=== PATIENT | male | born 1940 | race Two or more races ===

== ENCOUNTER 2018-02-22 17:39 | Inpatient (IN) | payer MEDICARE, MEDICAID ==
[~2018-02-22] VITALS: Ht 172.7 cm; Wt 98.1 kg
--- NOTE | 2018-02-22 00:15 | NUR ---
NURSE NOTES: Called Marcio Reyes for admission order, left message and received call back from Dr. Buckley with admission order, order noted and carried out.
[2018-02-22 17:39] VITALS: BP 128/82
--- NOTE | 2018-02-22 17:39 | NUR ---
ED Nurse Note: PT BROUGHT IN BY AMBULANCE FROM [facility]. PT GENERALIZED BODY ACHE, 10/10 X YESTERDAY. PT ALSO STATES HE MISSED DIALYSIS TODAY. AV FISTULA IN RIGHT UPPER ARM.
--- NOTE | 2018-02-22 18:42 | NUR ---
ED Nurse Note: 2RNs attempted for IV insertion, unsuccesful. Notified NÉSTOR Guillermo and Dr. Spears. Contacted laborer steel handling to come draw blood. Per Dr. Spears, we will wait for the lab result after laborer steel handling draw the blood and discuss further interventions.
--- NOTE | 2018-02-22 18:50 | NUR ---
ED Nurse Note: LAB AT BEDSIDE.
--- NOTE | 2018-02-22 18:54 | Diagnostic Imaging Report ---
EXAM: XR Chest, 1 View CLINICAL HISTORY: SWELL TECHNIQUE: Frontal view of the chest. COMPARISON: No relevant prior studies available. FINDINGS: The heart is enlarged. There is a single lead pacer device in a left subclavian approach. There are basilar opacities, left greater than right. Suspected moderate left and small right pleural effusions with associated compressive atelectasis. Cannot exclude consolidation. There is vascular congestion. Stent noted in the right upper mediastinum. IMPRESSION: Cardiomegaly and vascular congestion. Left larger than right pleural effusions with associated atelectasis and possible consolidation.
--- NOTE | 2018-02-22 19:04 | NUR ---
ED Nurse Note: REPORT GIVEN TO HUAN GLORIA.
--- NOTE | 2018-02-22 19:10 | NUR ---
ED Nurse Note: Received Pt and report from day shift. Knowing Pt will admit to MedSurg later, and Lab work is collecting on bedside but failed.
[2018-02-22] MEDS ORDERED: Lidocaine 1% Plain 30 ml INJ ONE (20:30)
[2018-02-22 20:38] LABS: BASOPHILS % (AUTO) 1.7 % (0.0-2.0); EOSINOPHILS % (AUTO) 4.5 % (0.0-3.0); HEMATOCRIT 28.3 % (42.0-52.0); HEMOGLOBIN 9.4 G/DL (14.2-18.0); LYMPHOCYTES % (AUTO) 14.9 % (20.0-45.0); MEAN CORPUSCULAR VOLUME 105 FL (80-99); NEUTROPHILS % (AUTO) 64.9 % (45.0-75.0); PLATELET COUNT 177 K/UL (150-450); RED CELL DISTRIBUTION WIDTH 12.8 % (11.6-14.8); WHITE BLOOD COUNT 7.3 K/UL (4.8-10.8)
[2018-02-22 20:44] LABS: ANION GAP 11 mmol/L (5-15); BLOOD UREA NITROGEN 44 mg/dL (7-18); CARBON DIOXIDE 26 MMOL/L (21-32); CHLORIDE 97 MMOL/L (98-107); CREATININE 8.6 MG/DL (0.55-1.30); POTASSIUM 4.9 MMOL/L (3.5-5.1); SODIUM 133 MMOL/L (136-145)
[2018-02-22 20:58] LABS: ALANINE AMINOTRANSFERASE 18 U/L (12-78); ALBUMIN 3.1 G/DL (3.4-5.0); ALBUMIN/GLOBULIN RATIO 0.7 (1.0-2.7); ALKALINE PHOSPHATASE 89 U/L (46-116); ASPARTATE AMINO TRANSFERASE 25 U/L (15-37); BILIRUBIN,TOTAL 0.7 MG/DL (0.2-1.0); CKMB 0.6 NG/ML (0.0-3.6); CREATINE KINASE 49 U/L (26-308)
--- NOTE | 2018-02-22 21:39 | Emergency Room Report ---
History of Present Illness General Chief Complaint: Edema Source: Medical Record Present Illness HPI 77-year-old male presents ED for evaluation. Coming from intermediate facility for generalized pain and swelling. Per nursing staff patient missed his dialysis today. Has been complaining of generalized pain. Dull, 8 out of 10, nonradiating. Denies chest pain or shortness of breath. Denies fevers or chills. Denies cough. No other aggravating relieving factors. Denies any other associated symptoms Allergies: Coded Allergies: ASPIRIN (Verified Allergy, Unknown, 02/22/18) Patient History Past Medical History: none Past Surgical History: none Pertinent Family History: none Social History: Denies: smoking, alcohol use, drug use Immunizations: UTD Reviewed Nursing Documentation: PMH: Agreed; PSxH: Agreed Review of Systems All Other Systems: negative except mentioned in HPI Physical Exam Vital Signs Date Time Temp Pulse Resp B/P (MAP) Pulse Ox O2 Delivery O2 Flow Rate FiO2 02/22/18 17:32 97.5 74 18 132/79 94 Room Air Sp02 EP Interpretation: reviewed, normal General Appearance: alert, GCS 15, non-toxic, obese Head: normocephalic, atraumatic Eyes: bilateral eye normal inspection, bilateral eye PERRL ENT: hearing grossly normal, normal pharynx, no angioedema, normal voice Neck: full range of motion, supple/symm/no masses Respiratory: chest non-tender, lungs clear, normal breath sounds, speaking full sentences Cardiovascular #1: regular rate, rhythm, no edema Cardiovascular #2: 2+ carotid (R), 2+ carotid (L), 2+ radial (R), 2+ radial (L) , 2+ dorsalis pedis (R), 2+ dorsalis pedis (L) Gastrointestinal: normal bowel sounds, non tender, soft, non-distended, no guarding, no rebound Rectal: deferred Genitourinary: normal inspection, no CVA tenderness Musculoskeletal: back normal, gait/station normal, normal range of motion, non- tender Neurologic: alert, oriented x3, responsive, motor strength/tone normal, sensory intact, speech normal Psychiatric: judgement/insight normal, memory normal, mood/affect normal, no suicidal/homicidal ideation Reflexes: 3+ bicep (R), 3+ bicep (L), 3+ tricep (R), 3+ tricep (L), 3+ knee (R) , 3+ knee (L) Skin: normal color, no rash, warm/dry, well hydrated Lymphatic: no adenopathy Procedures Central Line Central Line : Consent: Verbal Central Line Lumen: triple Maximal Sterile Barrier Tech: no cap, no mask, no sterile gown, no sterile gloves, no large sterile sheet, no hand hygiene, no chlorhexidine prep Central Line Postion: femoral (R) Anesthesia: Lidocaine Complications: none Central Line Post Position: sutured, good blood return Attempts: One Patient Tolerated: Well Complications: None Medical Decision Making Diagnostic Impression: Primary Impression: ESRD on dialysis Additional Impression: Elevated troponin ER Course Hospital Course 77 yo M presents with generalized swelling. mised dialysis today Differential diagnoses include: NH/unstable angina, fluid overload, CHF exacerabation, hyperkalemia, uremia Clinical course Patient placed on stretcher. on cardiac technician. After initial history and physical I ordered labs, EKG, chest x-ray labs reviewed- BUN/Cr elevated. K ok. trop 0.068, no leukocytosis, hemoglobin /hematocrit stable EKG - NSR, no acute ischemic changes interpreted by me Chest x-ray- left worse than right pleural effusions with some atelectasis and possible consolidation Patient is a very difficult IV access. Multiple attempts made. Right femoral central line placed. Lactate and cultures ordered abx given. Patient has no chest pain. No shortness of breath. Troponin elevation likely troponin leak. Vital stable. Case discussed with Dr. Buckley and he agreed to accept the patient to his service for further care and support I. I feel this is a highly complex case requiring extensive working including EKG/Rhythm strip, Xray/CT/US, Blood/urine lab work, repeat exams while in ED, and administration of strong opiates/narcotics for pain control, admission to hospital or close patient follow up. Diagnosis - ERSD on dialysis, elevated troponin admitted to floor in serious condition Labs Test 02/22/18 20:15 02/22/18 20:16 White Blood Count 7.3 K/UL (4.8-10.8) Red Blood Count 2.70 M/UL (4.70-6.10) Hemoglobin 9.4 G/DL (14.2-18.0) Hematocrit 28.3 % (42.0-52.0) Mean Corpuscular Volume 105 FL (80-99) Mean Corpuscular Hemoglobin 34.8 PG (27.0-31.0) Mean Corpuscular Hemoglobin Concent 33.1 G/DL (32.0-36.0) Red Cell Distribution Width 12.8 % (11.6-14.8) Platelet Count 177 K/UL (150-450) Mean Platelet Volume 6.4 FL (6.5-10.1) Neutrophils (%) (Auto) 64.9 % (45.0-75.0) Lymphocytes (%) (Auto) 14.9 % (20.0-45.0) Monocytes (%) (Auto) 14.0 % (1.0-10.0) Eosinophils (%) (Auto) 4.5 % (0.0-3.0) Basophils (%) (Auto) 1.7 % (0.0-2.0) Sodium Level 133 MMOL/L (136-145) Potassium Level 4.9 MMOL/L (3.5-5.1) Chloride Level 97 MMOL/L (98-107) Carbon Dioxide Level 26 MMOL/L (21-32) Anion Gap 11 mmol/L (5-15) Blood Urea Nitrogen 44 mg/dL (7-18) Creatinine 8.6 MG/DL (0.55-1.30) Estimat Glomerular Filtration Rate mL/min (>60) Glucose Level 99 MG/DL (74-106) Calcium Level 9.0 MG/DL (8.5-10.1) Total Bilirubin 0.7 MG/DL (0.2-1.0) Aspartate Amino Transf (AST/SGOT) 25 U/L (15-37) Alanine Aminotransferase (ALT/SGPT) 18 U/L (12-78) Alkaline Phosphatase 89 U/L (46-116) Total Creatine Kinase 49 U/L (26-308) Creatine Kinase MB 0.6 NG/ML (0.0-3.6) Creatine Kinase MB Relative Index 1.2 Troponin I 0.068 ng/mL (0.000-0.056) Pro-B-Type Natriuretic Peptide 05340 pg/mL (0-125) Total Protein 7.3 G/DL (6.4-8.2) Albumin 3.1 G/DL (3.4-5.0) Globulin 4.2 g/dL Albumin/Globulin Ratio 0.7 (1.0-2.7) Arterial Blood pH 7.444 (7.350-7.450) Arterial Blood Partial Pressure CO2 40.5 mmHg (35.0-45.0) Arterial Blood Partial Pressure O2 83.0 mmHg (75.0-100.0) Arterial Blood HCO3 27.1 mmol/L (22.0-26.0) Arterial Blood Oxygen Saturation 95.8 % (95-100) Arterial Blood Base Excess 2.8 (-2-2) Jet Test N/a EKG Diagnostic Results Rate: normal Rhythm: NSR ST Segments: no acute changes ASA given to the pt in ED: No Rhythm Strip Diag. Results EP Interpretation: yes Rhythm: NSR, no PVC's, no ectopy Chest X-Ray Diagnostic Results Chest X-Ray Diagnostic Results : Chest X-Ray Ordered: Yes # of Views/Limited/Complete: 1 View Indication: Other EP Interpretation: Yes Interpretation: no pneumothorax, no acute cardiopulmonary disease, other - L >> R pleural effusions with ? consolidation Impression: Other - CHF/PNA Electronically Signed by: Electronically signed by Ben Mckeon MD Last Vital Signs Date Time Temp Pulse Resp B/P (MAP) Pulse Ox O2 Delivery O2 Flow Rate FiO2 02/22/18 17:39 98.3 72 20 128/82 100 Room Air Status: improved Disposition: ADMITTED INPATIENT Condition: Serious Referrals: Kelvin Buckley MD (PCP) Ben Mckeon MD Feb 22, 2018 21:39
[2018-02-22 23:00] VITALS: BP 136/89
--- NOTE | 2018-02-22 23:10 | NUR ---
ED Nurse Note: Admit Pt to 4E room 419-2. Pt is AO x 4times, VSS, on room air no distress. Belongings and skin check with RN. Report given to HUAN Negrete.
--- NOTE | 2018-02-22 23:15 | NUR ---
NURSE NOTES: Report received from ER HUAN Edwards. Patient transferred from ER via [place]. Patient awake, alert, No acute distress noted, Bed in lowest position and locked, Alarm is on, Skin assessment done, skin intact, Central line on Rt femoral is intact, AV shunt on Rt upper arm positive with bruit and thrill, Belonging are checked, instructed how to use call light, Call light and need within reach, Will continue to monitor.
[2018-02-23] VITALS: BP 141/74
[2018-02-23] MEDS ORDERED: ATORVASTATIN CA40 MG ORAL (01:56)
[2018-02-23] MEDS ORDERED: METOPROLOL TART25 MG ORAL (01:56)
[2018-02-23] MEDS ORDERED: FEOSOL1 TAB ORAL (01:56)
[2018-02-23] MEDS ORDERED: RENA-VITE TABL0.8 M1 PO (01:56)
[2018-02-23] MEDS ORDERED: CALCIUM ACETAT667 M1 PO (01:56)
[2018-02-23] MEDS ORDERED: RENVELA800 MG ORAL (01:59)
[2018-02-23] MEDS: HYDROcodone/Acetamin 5/325 tab ORAL PRN ×2 (02:51→09:54)
[2018-02-23 04:00] VITALS: BP 120/62
[2018-02-23] MEDS: Insulin Human Regular 100units/ml 3ml SUBQ SCH (05:37)
[2018-02-23 07:08] LABS: BASOPHILS % (AUTO) 0.6 % (0.0-2.0); EOSINOPHILS % (AUTO) 2.5 % (0.0-3.0); HEMATOCRIT 26.6 % (42.0-52.0); HEMOGLOBIN 8.8 G/DL (14.2-18.0); LYMPHOCYTES % (AUTO) 12.4 % (20.0-45.0); MEAN CORPUSCULAR VOLUME 104 FL (80-99); MONOCYTES % (AUTO) 12.6 % (1.0-10.0); NEUTROPHILS % (AUTO) 71.9 % (45.0-75.0); PLATELET COUNT 180 K/UL (150-450); RED BLOOD COUNT 2.56 M/UL (4.70-6.10); RED CELL DISTRIBUTION WIDTH 12.7 % (11.6-14.8)
[2018-02-23 07:20] LABS: ALANINE AMINOTRANSFERASE 17 U/L (12-78); ALBUMIN 2.9 G/DL (3.4-5.0); ALBUMIN/GLOBULIN RATIO 0.7 (1.0-2.7); ALKALINE PHOSPHATASE 84 U/L (46-116); ANION GAP 10 mmol/L (5-15); ASPARTATE AMINO TRANSFERASE 21 U/L (15-37); BILIRUBIN,TOTAL 0.7 MG/DL (0.2-1.0); BLOOD UREA NITROGEN 45 mg/dL (7-18); CALCIUM 8.5 MG/DL (8.5-10.1); CARBON DIOXIDE 26 MMOL/L (21-32); CHLORIDE 97 MMOL/L (98-107); CREATININE 9.2 MG/DL (0.55-1.30); POTASSIUM 5.1 MMOL/L (3.5-5.1); SODIUM 133 MMOL/L (136-145)
--- NOTE | 2018-02-23 07:21 | NUR ---
HAND-OFF: Report given to HUAN Altamirano.
[2018-02-23 08:00] VITALS: BP 127/65
--- NOTE | 2018-02-23 08:00 | NUR ---
NURSE NOTES: received patient in bed, asleep, no sign of discomfort noted. Patient is bedbound, has TLC at right femoral site, and right AV fistula for hemodialysis, thrill and bruit present. Bed locked at the lowest position possible, on bed alarm, call light within easy reach, siderails up x2. Will continue to monitor patient and follow op with the plan of care.
[2018-02-23] MEDS: Metoprolol 25mg tab ORAL SCH ×3 (09:00→21:58)
[2018-02-23] MEDS ORDERED: Imdur 30mg tab ORAL SCH ×3 (09:00→22:00)
[2018-02-23 09:15] LABS: CHOLESTEROL 97 MG/DL (< 200); HDL CHOLESTEROL 25 MG/DL (40-60); TRIGLYCERIDES 93 MG/DL (30-150)
[2018-02-23 09:19] LABS: % IRON SATURATION 25 % (15-50); IRON 34 ug/dL (50-175); TOTAL IRON BINDING CAPACITY 134 ug/dL (250-450)
[2018-02-23 09:35] LABS: FERRITIN 932 NG/ML (8-388); GAMMA GLUTAMYL TRANSPEPTIDASE 107 U/L (5-85); PHOSPHORUS 5.2 MG/DL (2.5-4.9)
[2018-02-23] MEDS: Nephrovite tab (Rena-Vite) ORAL SCH (09:46)
[2018-02-23] MEDS: Calcium Acetate 667mg Tab ORAL SCH ×3 (09:46→18:23)
[2018-02-23] MEDS: Docusate 100mg cap ORAL SCH ×3 (09:47→18:23)
[2018-02-23] MEDS: Heparin 5000 units/ml inj SUBQ SCH ×3 (09:49→21:57)
[2018-02-23 12:00] VITALS: BP 126/71
--- NOTE | 2018-02-23 14:30 | Cardiology Report ---
APPROVED REPORT EXAM: Two-dimensional and M-mode echocardiogram with Doppler and color Doppler. INDICATION Congestive Heart Failure M-Mode DIMENSIONS IVSd1.4 (0.7-1.1cm)Left Atrium (MM)4.3 (1.6-4.0cm) LVDd5.5 (3.5-5.6cm)Aortic Root3.3 (2.0-3.7cm) PWd1.4 (0.7-1.1cm)Aortic Cusp Exc.2.0 (1.5-2.0cm) LVDs4.3 (2.5-4.0cm) PWs1.9 cm Technically difficult study due to poor acoustic windows. Study quality precludes accurate assessment of regional wall motion. Normal left ventricular chamber size. Global left ventricular hypokinesis. Left ventricular ejection fraction estimated to be 40 %. Mild left ventricular hypertrophy. Large pleural effusion. Moderate left atrial enlargement. Right cardiac chamber sizes are within normal limits. Mild focal aortic valve sclerosis with adequate cusp excursion. Mildly thickened mitral valve leaflets with normal excursion. Mild mitral annulus and aortic root calcification. Pulmonic valve not well visualized. Normal tricuspid valve structure. IVC is normal in size with physiological collapse. A color flow and spectral Doppler study was performed and revealed: No aortic insufficiency. Mild mitral regurgitation. Left ventricular diastolic function could not be determined due to arrhythmia. Mild tricuspid regurgitation. Tricuspid systolic velocities suggests peak right ventricular systolic pressure of 40 mmHg, consistent with mild pulmonary hypertension. Trace pulmonic regurgitation present.
--- NOTE | 2018-02-23 15:01 | Consultation ---
Consult Note Consult Note asked to eval for dialysis management 77-year-old male presents ED for evaluation. Coming from [facility] for generalized pain and swelling. Per nursing staff patient missed his dialysis today. Has been complaining of generalized pain. Dull, 8 out of 10, nonradiating. Denies chest pain or shortness of breath. Denies fevers or chills. Denies cough. No other aggravating relieving factors. Denies any other associated symptoms Allergies: ASPIRIN (Verified Allergy, Unknown, 02/22/18) examined data reviewed Assessment/Plan ESRD graft right arm Obese CP elevated Troponin Anemia of CKD EPO SQ HD today beta blockers Nitrate plavix gastric support renal diet per orders 2D echo Prasanna Arrington MD Feb 23, 2018 15:01
--- NOTE | 2018-02-23 15:18 | Cardiology Report ---
APPROVED REPORT EKG Measurement Heart [id number] Atrial rhythm with PVCs Baseline artifact precludes full analysis. Cannot rule out Inferior infarct, age undetermined Abnormal ECG
[2018-02-23 16:00] VITALS: BP 127/70
--- NOTE | 2018-02-23 17:31 | NUR ---
CASE MANAGEMENT: INITIAL REVIEW 77 YO M JOANN FROM [facility] CC: EDEMA PMHx: HD. ESRD. SI:FLUID OVERLOAD. ESRD. T 97.5 HR 74 RR 18 B/P 132/79 SATS 94% ON RA NA 133 CL 97 BUN 44 CR 8.6 TROPONIN 0.068BNP 10993 IS: NO MEDS IN ED PATIENT ADMITTED TO MED/SURG 02/22/2018 @ 4361 DCP: PATIENT TO BE DISCHARGED TO HOME ONCE MEDICALLY CLEARED. PLAN OF CARE: NEPHRO CONSULT Addendum: 02/23/18 at 1919 by Enid Morrissey CM INTERQUAL MET FOR ACUTE
--- NOTE | 2018-02-23 17:59 | Consultation ---
DATE OF CONSULTATION: 02/23/2018 INFECTIOUS DISEASE CONSULTATION CONSULTING PHYSICIAN: Soto Saunders M.D. PRIMARY ATTENDING PHYSICIAN: Kelvin Buckley M.D. REASON FOR CONSULTATION: Pleural effusion, questionable pneumonia. HISTORY OF PRESENT ILLNESS: This is a 77-year-old male, who is a [facility] resident admitted last night complaining of generalized body pain and swelling. Currently getting pain medication and feels better. Chest x-ray showed pleural effusions more on the left side and some atelectasis or consolidation. PAST MEDICAL HISTORY: Significant for end-stage renal disease, on hemodialysis. The patient needs hemodialysis, the last hemodialysis in the [facility]. Anemia and diabetes mellitus. ALLERGIES: Allergic to aspirin. MEDICATIONS: He did get atorvastatin, isosorbide, heparin, calcium acetate, metoprolol, Renvela, Colace, Nephro-Karina, insulin, Protonix, hydrocodone plus Tylenol, clonidine, Zofran. He got a dose of Levaquin. SOCIAL HISTORY: Originally from [place]. No history of alcohol, drug abuse, or smoking. Single. REVIEW OF SYSTEMS: Now feeling better. No fever. No chills. No coughing. No shortness of breath. No sore throat. No nausea. No vomiting. No diarrhea. PHYSICAL EXAMINATION: VITAL SIGNS: Temperature 98.4, pulse 70, blood pressure 124/65. GENERAL APPEARANCE: Seems to be overweight, obese, in no acute distress. HEAD AND NECK: [place] conjunctivae. HEART: S1 and S2, regular. LUNGS: Clear. ABDOMEN: Soft, nontender. EXTREMITIES: No significant edema. NEUROLOGIC: Awake, alert, and oriented x3. LABORATORY AND DIAGNOSTIC DATA: WBC 7, hemoglobin 8.8, hematocrit 26.6, platelet is 180,000. Sodium 133, potassium 5.5, chloride 97, bicarbonate 26, BUN 45, creatinine 9.2. Chest x-ray showed cardiomegaly, vascular congestion, left larger than right pleural effusion with associated atelectasis, possible consolidation. IMPRESSION: Pleural effusion with atelectasis. The patient does not seem to be septic, doubt he has pneumonia. He has end-stage renal disease, likely volume overload, diabetes mellitus, hypertension, and anemia. RECOMMENDATION: We will observe off antibiotic. If the patient develops symptoms, become febrile, or develops leukocytosis, we will start treatment for pneumonia. At the end of my exam, I thank Dr. Buckley for involving me in the care of this patient. Soto Saunders M.D. DR: Kodi JOB#: [id number] CC:
--- NOTE | 2018-02-23 19:30 | NUR ---
NURSE NOTES: Received patient in bed, patient is ongoing Dialysis at this time.
--- NOTE | 2018-02-23 19:47 | NUR ---
HAND-OFF: Report given to HUAN Vidales.
[2018-02-23 21:00] VITALS: BP 121/61
[2018-02-23] MEDS: Atorvastatin 80mg tab ORAL SCH (21:58)
[2018-02-23] MEDS: Dyna-Hex 2% Top Sol 2oz TOPIC SCH (22:07)
--- NOTE | 2018-02-23 22:30 | NUR ---
Spoked Dr. Buckley on the phone regarding patient's high troponin level. According , high troponin level is expected for dialysis patient and He said Physician consult with Vickey Montejo for patient's concern. noted and carried out.
--- NOTE | 2018-02-23 22:30 | NUR ---
NURSE NOTES: Spoked Dr. Jacinto on the phone regarding patient's high troponin level. He said Physician consult with Vickey Montejo for patient's concern. noted and carried out. Addendum: 02/23/18 at 8684 by Arleth North RN wrong entry
--- NOTE | 2018-02-23 22:50 | NUR ---
NURSE NOTES: Called Dr. Jiang regarding patient concern with high troponin level and ejection fraction level. left message and received call back with order to cancel all troponin order. He said that he will visit patient tomorrow. order noted and carried out.
[2018-02-24] VITALS: BP 110/69
[2018-02-24 04:00] VITALS: BP 112/75
[2018-02-24] MEDS: HYDROcodone/Acetamin 5/325 tab ORAL PRN (04:40)
[2018-02-24] MEDS: Insulin Human Regular 100units/ml 3ml SUBQ SCH (06:07)
[2018-02-24 06:29] LABS: BASOPHILS % (AUTO) 1.1 % (0.0-2.0); EOSINOPHILS % (AUTO) 0.6 % (0.0-3.0); HEMATOCRIT 27.2 % (42.0-52.0); LYMPHOCYTES % (AUTO) 13.6 % (20.0-45.0); MEAN CORPUSCULAR VOLUME 104 FL (80-99); MONOCYTES % (AUTO) 14.2 % (1.0-10.0); NEUTROPHILS % (AUTO) 70.5 % (45.0-75.0); PLATELET COUNT 168 K/UL (150-450); RED BLOOD COUNT 2.61 M/UL (4.70-6.10); RED CELL DISTRIBUTION WIDTH 12.7 % (11.6-14.8); WHITE BLOOD COUNT 7.3 K/UL (4.8-10.8)
[2018-02-24 06:53] LABS: ALANINE AMINOTRANSFERASE 16 U/L (12-78); ALBUMIN 2.9 G/DL (3.4-5.0); ALBUMIN/GLOBULIN RATIO 0.7 (1.0-2.7); ALKALINE PHOSPHATASE 89 U/L (46-116); ANION GAP 7 mmol/L (5-15); ASPARTATE AMINO TRANSFERASE 20 U/L (15-37); BILIRUBIN,TOTAL 0.8 MG/DL (0.2-1.0); BLOOD UREA NITROGEN 27 mg/dL (7-18); CALCIUM 8.7 MG/DL (8.5-10.1); CARBON DIOXIDE 31 MMOL/L (21-32); CHLORIDE 96 MMOL/L (98-107); CREATINE KINASE 40 U/L (26-308); CREATININE 6.2 MG/DL (0.55-1.30); POTASSIUM 4.2 MMOL/L (3.5-5.1); SODIUM 134 MMOL/L (136-145)
[2018-02-24 07:18] LABS: PHOSPHORUS 3.7 MG/DL (2.5-4.9)
[2018-02-24 08:00] VITALS: BP 113/70
--- NOTE | 2018-02-24 08:00 | NUR ---
NURSE NOTES: received patient in bed, awake, no complaint of discomfort noted. Patient is bedbound, has TLC at right femoral site, and right AV fistula for hemodialysis. Bed locked at the lowest position possible, on bed alarm, call light within easy reach, siderails up x2. Will continue to monitor patient and follow op with the plan of care.
[2018-02-24] MEDS: Docusate 100mg cap ORAL SCH ×3 (08:46→18:18)
[2018-02-24] MEDS: Nephrovite tab (Rena-Vite) ORAL SCH (08:47)
[2018-02-24] MEDS: Calcium Acetate 667mg Tab ORAL SCH (08:47)
[2018-02-24] MEDS: Metoprolol 25mg tab ORAL SCH ×3 (08:48→21:00)
[2018-02-24] MEDS: Heparin 5000 units/ml inj SUBQ SCH ×2 (08:55→20:39)
[2018-02-24] MEDS ORDERED: Imdur 30mg tab ORAL SCH (09:00)
--- NOTE | 2018-02-24 09:45 | History and Physical Report ---
DATE OF ADMISSION: 02/22/2018 "NOTE: POOR AUDIO QUALITY" HISTORY OF PRESENT ILLNESS: The patient has end-stage renal disease, on hemodialysis, skipped hemodialysis. Also, has possible pneumonia, borderline elevated troponin as well. The patient complains of shortness of breath. . Denies cough. Denies orthopnea. Past medical history of end-stage renal disease, on hemodialysis. There is a shunt on the right arm, neck surgery. Also, right lower extremity fracture surgery. PAST MEDICAL HISTORY: Significant for end-stage renal disease, on hemodialysis; hyperlipidemia; iron deficiency anemia; hypertension; and degenerative joint disease. SOCIAL HISTORY: History of smoking. Denies alcohol or illicit drugs. Comes from a [facility]. FAMILY HISTORY: Noncontributory. REVIEW OF SYSTEMS: HEENT: Denies headache. RESPIRATORY: Denies shortness of breath. Denies cough. CARDIOVASCULAR: No chest pain. No orthopnea. GI: No nausea, vomiting, or diarrhea. EXTREMITIES: edema. CENTRAL NERVOUS SYSTEM: Feels weak. Denies headaches. PHYSICAL EXAMINATION: VITAL SIGNS: Temperature is 98.4 degrees, pulse is 74, and blood pressure 126/71. HEENT: PERRLA. NECK: Supple. No lymphadenopathy. CHEST: Clear to auscultation. CARDIOVASCULAR: Regular rate and rhythm. ABDOMEN: Soft. Positive bowel sounds. Distended. EXTREMITIES: . NEUROLOGIC: Generalized weakness both sides. The patient on the right arm. LABORATORY DATA: WBC of 7.3, hemoglobin 9.4, and platelets 177. ASSESSMENT AND PLAN: End-stage renal disease, skipped dialysis, possible pneumonia, fluid overload, and shortness of breath. I have asked Dr. Arrington to see the patient for the dialysis orders as well as Dr. Jorge for Dr. Soto Saunders. Kelvin Buckley M.D. DR: Ana JOB#: [id number] CC:
--- NOTE | 2018-02-24 11:29 | Nephrology Progress Note ---
Assessment/Plan Problem List: (1) ESRD (end stage renal disease) on dialysis (2) Elevated troponin (3) Anemia in CKD (chronic kidney disease) Assessment ESRD graft right arm Obese CP elevated Troponin Anemia of CKD Plan EPO SQ HD in am again beta blockers Nitrate plavix gastric support renal diet per orders 2D echo pending Subjective ROS Limited/Unobtainable: No Constitutional: Reports: malaise, weakness Objective Objective Last 24 Hour Vital Signs Date Time Temp Pulse Resp B/P (MAP) Pulse Ox O2 Delivery O2 Flow Rate FiO2 02/24/18 08:48 113/70 02/24/18 08:48 90 113/70 02/24/18 08:00 97.1 90 20 113/70 (84) 98 02/24/18 04:00 98.2 70 17 112/75 (87) 100 02/24/18 00:00 97.9 72 18 110/69 (83) 100 02/23/18 21:58 75 116/67 02/23/18 21:30 Room Air 02/23/18 21:00 97.1 72 18 121/61 (81) 98 02/23/18 21:00 Room Air 02/23/18 16:00 98.1 81 18 127/70 (89) 98 02/23/18 12:00 98.4 74 18 126/71 (89) 98 Intake and Output 02/23/18 02/24/18 19:00 07:00 Intake Total 550 ml 120 ml Output Total 1500 ml Balance 550 ml -1380 ml Intake Oral 120 ml Other 550 ml Output Hemodialysis UF 1500 ml # Voids 1 Current Medications Medications (Trade) Dose Ordered Sig/Brandon Route PRN Reason Start Time Stop Time Status Last Admin Dose Admin Acetaminophen (Tylenol) 650 mg Q4H PRN ORAL Mild Pain/Temp > 100.5 02/23/18 00:45 03/25/18 00:44 Acetaminophen/ Hydrocodone Bitart ([place] 5/325) 1 tab Q6H PRN ORAL Severe Pain (Pain Scale 7-10) 02/23/18 01:45 03/02/18 01:44 02/24/18 04:40 Atorvastatin Calcium (Lipitor) 40 mg BEDTIME ORAL 02/23/18 21:00 03/25/18 20:59 02/23/18 21:58 Chlorhexidine Gluconate (Beverly-Hex 2%) 1 applic DAILY@1999 TOPIC 02/23/18 20:00 03/25/18 19:59 02/23/18 22:07 Clonidine HCl (Catapres Tab) 0.1 mg Q4H PRN ORAL bp over 165 syst 02/23/18 00:45 03/25/18 00:44 Clopidogrel Bisulfate (Plavix) 75 mg DAILY ORAL 02/24/18 09:00 03/26/18 08:59 02/24/18 08:47 Docusate Sodium (Colace) 100 mg THREE TIMES A DAY ORAL 02/23/18 09:00 03/25/18 08:59 02/24/18 08:46 Epoetin Ziyad (Procrit (for ESRD on dialysis)) 10,000 units SUBQ 02/24/18 21:00 03/26/18 20:59 Heparin Sodium (Porcine) (Heparin 5000 units/ml) 5,000 units EVERY 12 HOURS SUBQ 02/23/18 09:00 03/25/18 08:59 02/24/18 08:55 Insulin Human Regular (NovoLIN R) 1 units NOVOLOGB SUBQ 02/23/18 06:30 03/25/18 06:29 Isosorbide Mononitrate (Imdur) 60 mg DAILY ORAL 02/25/18 09:00 03/25/18 08:59 Metoprolol Tartrate (Lopressor) 25 mg EVERY 12 HOURS ORAL 02/23/18 09:00 03/25/18 08:59 02/23/18 21:58 Ondansetron HCl (Zofran) 4 mg Q6H PRN IV Nausea & Vomiting 02/23/18 00:45 03/25/18 00:44 Pantoprazole (Protonix) 40 mg BID ORAL 02/23/18 18:00 03/25/18 06:29 02/24/18 08:47 Sevelamer Carbonate (Renvela) 800 mg THREE TIMES A DAY ORAL 02/23/18 09:00 03/25/18 08:59 02/24/18 08:47 Laboratory Tests 02/24/18 05:15: White Blood Count 7.3, Red Blood Count 2.61L, Hemoglobin 9.0L, Hematocrit 27.2L , Mean Corpuscular Volume 104H, Mean Corpuscular Hemoglobin 34.3H, Mean Corpuscular Hemoglobin Concent 32.9, Red Cell Distribution Width 12.7, Platelet Count 168, Mean Platelet Volume 6.9, Neutrophils (%) (Auto) 70.5, Lymphocytes (% ) (Auto) 13.6L, Monocytes (%) (Auto) 14.2H, Eosinophils (%) (Auto) 0.6, Basophils (%) (Auto) 1.1, Sodium Level 134L, Potassium Level 4.2, Chloride Level 96L, Carbon Dioxide Level 31, Anion Gap 7, Blood Urea Nitrogen 27H, Creatinine 6.2H, Estimat Glomerular Filtration Rate , Glucose Level 88, Uric Acid 4.0, Calcium Level 8.7, Phosphorus Level 3.7, Magnesium Level 1.8, Total Bilirubin 0.8, Aspartate Amino Transf (AST/SGOT) 20, Alanine Aminotransferase ( ALT/SGPT) 16, Alkaline Phosphatase 89, Total Creatine Kinase 40, Pro-B-Type Natriuretic Peptide 8639H, Total Protein 7.0, Albumin 2.9L, Globulin 4.1, Albumin/Globulin Ratio 0.7L Height (Feet): 5 Height (Inches): 8.00 Weight (Pounds): 227 General Appearance: no apparent distress Respiratory/Chest: decreased breath sounds Abdomen: soft Prasanna Arrington MD Feb 24, 2018 11:29
--- NOTE | 2018-02-24 12:37 | Infectious Diseases Prog Note ---
Assessment/Plan Assessment/Plan A: Pleural effusion Atelectasis Volume overload ESRD on HD Anemia DM HPN CHF ( EF=40%) P; observe off antibiotics Subjective ROS Limited/Unobtainable: Yes Constitutional: Reports: no symptoms Respiratory: Reports: no symptoms Gastrointestinal/Abdominal: Reports: no symptoms Allergies: Coded Allergies: ASPIRIN (Verified Allergy, Unknown, 02/22/18) Objective Vital Signs Last 24 Hour Vital Signs Date Time Temp Pulse Resp B/P (MAP) Pulse Ox O2 Delivery O2 Flow Rate FiO2 02/24/18 08:48 113/70 02/24/18 08:48 90 113/70 02/24/18 08:00 97.1 90 20 113/70 (84) 98 02/24/18 04:00 98.2 70 17 112/75 (87) 100 02/24/18 00:00 97.9 72 18 110/69 (83) 100 02/23/18 21:58 75 116/67 02/23/18 21:30 Room Air 02/23/18 21:00 97.1 72 18 121/61 (81) 98 02/23/18 21:00 Room Air 02/23/18 16:00 98.1 81 18 127/70 (89) 98 Height (Feet): 5 Height (Inches): 8.00 Weight (Pounds): 227 General Appearance: no acute distress HEENT: mucous membranes moist Respiratory/Chest: lungs clear Cardiovascular: normal rate Abdomen: soft, non tender Extremities: no edema Neurologic/Psychiatric: alert, responsive Microbiology Date/Time Source Procedure Growth Status 02/22/18 21:00 Blood Blood Culture - Preliminary NO GROWTH AFTER 24 HOURS Resulted 02/22/18 21:00 Blood Blood Culture - Preliminary NO GROWTH AFTER 24 HOURS Resulted 02/22/18 23:20 Rectum - Preliminary Resulted 02/22/18 23:20 Rectum Received Laboratory Tests Test 02/24/18 05:15 White Blood Count 7.3 K/UL (4.8-10.8) Red Blood Count 2.61 M/UL (4.70-6.10) L Hemoglobin 9.0 G/DL (14.2-18.0) L Hematocrit 27.2 % (42.0-52.0) L Mean Corpuscular Volume 104 FL (80-99) H Mean Corpuscular Hemoglobin 34.3 PG (27.0-31.0) H Mean Corpuscular Hemoglobin Concent 32.9 G/DL (32.0-36.0) Red Cell Distribution Width 12.7 % (11.6-14.8) Platelet Count 168 K/UL (150-450) Mean Platelet Volume 6.9 FL (6.5-10.1) Neutrophils (%) (Auto) 70.5 % (45.0-75.0) Lymphocytes (%) (Auto) 13.6 % (20.0-45.0) L Monocytes (%) (Auto) 14.2 % (1.0-10.0) H Eosinophils (%) (Auto) 0.6 % (0.0-3.0) Basophils (%) (Auto) 1.1 % (0.0-2.0) Sodium Level 134 MMOL/L (136-145) L Potassium Level 4.2 MMOL/L (3.5-5.1) Chloride Level 96 MMOL/L (98-107) L Carbon Dioxide Level 31 MMOL/L (21-32) Anion Gap 7 mmol/L (5-15) Blood Urea Nitrogen 27 mg/dL (7-18) H Creatinine 6.2 MG/DL (0.55-1.30) H Estimat Glomerular Filtration Rate mL/min (>60) Glucose Level 88 MG/DL (74-106) Uric Acid 4.0 MG/DL (2.6-7.2) Calcium Level 8.7 MG/DL (8.5-10.1) Phosphorus Level 3.7 MG/DL (2.5-4.9) Magnesium Level 1.8 MG/DL (1.8-2.4) Total Bilirubin 0.8 MG/DL (0.2-1.0) Aspartate Amino Transf (AST/SGOT) 20 U/L (15-37) Alanine Aminotransferase (ALT/SGPT) 16 U/L (12-78) Alkaline Phosphatase 89 U/L (46-116) Total Creatine Kinase 40 U/L (26-308) Pro-B-Type Natriuretic Peptide 8639 pg/mL (0-125) H Total Protein 7.0 G/DL (6.4-8.2) Albumin 2.9 G/DL (3.4-5.0) L Globulin 4.1 g/dL Albumin/Globulin Ratio 0.7 (1.0-2.7) L Current Medications Medications (Trade) Dose Ordered Sig/Brandon Route PRN Reason Start Time Stop Time Status Last Admin Dose Admin Acetaminophen (Tylenol) 650 mg Q4H PRN ORAL Mild Pain/Temp > 100.5 02/23/18 00:45 03/25/18 00:44 Acetaminophen/ Hydrocodone Bitart ([place] 5/325) 1 tab Q6H PRN ORAL Severe Pain (Pain Scale 7-10) 02/23/18 01:45 03/02/18 01:44 02/24/18 04:40 Atorvastatin Calcium (Lipitor) 40 mg BEDTIME ORAL 02/23/18 21:00 03/25/18 20:59 02/23/18 21:58 Chlorhexidine Gluconate (Beverly-Hex 2%) 1 applic DAILY@1999 TOPIC 02/23/18 20:00 03/25/18 19:59 02/23/18 22:07 Clonidine HCl (Catapres Tab) 0.1 mg Q4H PRN ORAL bp over 165 syst 02/23/18 00:45 03/25/18 00:44 Clopidogrel Bisulfate (Plavix) 75 mg DAILY ORAL 02/24/18 09:00 03/26/18 08:59 02/24/18 08:47 Docusate Sodium (Colace) 100 mg THREE TIMES A DAY ORAL 02/23/18 09:00 03/25/18 08:59 02/24/18 08:46 Epoetin Ziyad (Procrit (for ESRD on dialysis)) 10,000 units SAT-SAT-SAT SUBQ 02/24/18 21:00 03/26/18 20:59 Heparin Sodium (Porcine) (Heparin 5000 units/ml) 5,000 units EVERY 12 HOURS SUBQ 02/23/18 09:00 03/25/18 08:59 02/24/18 08:55 Insulin Human Regular (NovoLIN R) 1 units NOVOLOGB SUBQ 02/23/18 06:30 03/25/18 06:29 Isosorbide Mononitrate (Imdur) 60 mg DAILY ORAL 02/25/18 09:00 03/25/18 08:59 Metoprolol Tartrate (Lopressor) 25 mg EVERY 12 HOURS ORAL 02/23/18 09:00 03/25/18 08:59 02/23/18 21:58 Ondansetron HCl (Zofran) 4 mg Q6H PRN IV Nausea & Vomiting 02/23/18 00:45 03/25/18 00:44 Pantoprazole (Protonix) 40 mg BID ORAL 02/23/18 18:00 03/25/18 06:29 02/24/18 08:47 Sevelamer Carbonate (Renvela) 800 mg THREE TIMES A DAY ORAL 02/23/18 09:00 03/25/18 08:59 02/24/18 08:47 Soto Saunders MD Feb 24, 2018 12:37
[2018-02-24 16:00] VITALS: BP 132/79
--- NOTE | 2018-02-24 19:25 | NUR ---
HAND-OFF: Report given to HUAN Bonilla.
--- NOTE | 2018-02-24 19:40 | NUR ---
NURSE NOTES: Received a report from HUAN Altamirano. Pt is in stable condition. Sleeping comfortably. No respiratory distress noted. On room air. No c/o pain/discomfort. AV shunt on the R upper arm + thrill and bruit. R femoral 3 lumen, is patent and intact. Bed in lowest position. Bed alarm is on. Call light within reach. Will continue to monitor.
[2018-02-24 20:00] VITALS: BP 132/73
--- NOTE | 2018-02-24 20:30 | NUR ---
NURSE NOTES: Pt refused Lipitor and Lopressor, despite education provided.
[2018-02-24] MEDS: Dyna-Hex 2% Top Sol 2oz TOPIC SCH (20:36)
[2018-02-24] MEDS: Atorvastatin 80mg tab ORAL SCH ×2 (20:38→21:00)
[2018-02-24] MEDS: Epogen (for ESRD on dialysis) SUBQ SCH (20:38)
--- NOTE | 2018-02-24 20:38 | General Progress Note ---
Assessment/Plan Problem List: (1) ESRD on dialysis ICD Codes: N18.6 - End stage renal disease; Z99.2 - Dependence on renal dialysis SNOMED: 095294480, [id number], [id number] (2) ESRD (end stage renal disease) on dialysis ICD Codes: N18.6 - End stage renal disease; Z99.2 - Dependence on renal dialysis SNOMED: 052704551 (3) Fluid overload ESRD Status: progressing Assessment/Plan missed diaylsis afebrile fluid overload improved rewieved chart and labs Subjective ROS Limited/Unobtainable: Yes Allergies: Coded Allergies: ASPIRIN (Verified Allergy, Unknown, 02/22/18) Objective Last 24 Hour Vital Signs Date Time Temp Pulse Resp B/P (MAP) Pulse Ox O2 Delivery O2 Flow Rate FiO2 02/24/18 20:00 98.1 70 18 132/73 (92) 99 02/24/18 16:00 98.1 78 18 132/79 (96) 99 02/24/18 09:00 Room Air 02/24/18 08:48 113/70 02/24/18 08:48 90 113/70 02/24/18 08:00 97.1 90 20 113/70 (84) 98 02/24/18 04:00 98.2 70 17 112/75 (87) 100 02/24/18 00:00 97.9 72 18 110/69 (83) 100 02/23/18 21:58 75 116/67 02/23/18 21:30 Room Air 02/23/18 21:00 97.1 72 18 121/61 (81) 98 02/23/18 21:00 Room Air Intake and Output 02/23/18 02/24/18 19:00 07:00 Intake Total 550 ml 120 ml Output Total 1500 ml Balance 550 ml -1380 ml Intake Oral 120 ml Other 550 ml Output Hemodialysis UF 1500 ml # Voids 1 Laboratory Tests 02/24/18 05:15: White Blood Count 7.3, Red Blood Count 2.61L, Hemoglobin 9.0L, Hematocrit 27.2L , Mean Corpuscular Volume 104H, Mean Corpuscular Hemoglobin 34.3H, Mean Corpuscular Hemoglobin Concent 32.9, Red Cell Distribution Width 12.7, Platelet Count 168, Mean Platelet Volume 6.9, Neutrophils (%) (Auto) 70.5, Lymphocytes (% ) (Auto) 13.6L, Monocytes (%) (Auto) 14.2H, Eosinophils (%) (Auto) 0.6, Basophils (%) (Auto) 1.1, Sodium Level 134L, Potassium Level 4.2, Chloride Level 96L, Carbon Dioxide Level 31, Anion Gap 7, Blood Urea Nitrogen 27H, Creatinine 6.2H, Estimat Glomerular Filtration Rate , Glucose Level 88, Uric Acid 4.0, Calcium Level 8.7, Phosphorus Level 3.7, Magnesium Level 1.8, Total Bilirubin 0.8, Aspartate Amino Transf (AST/SGOT) 20, Alanine Aminotransferase ( ALT/SGPT) 16, Alkaline Phosphatase 89, Total Creatine Kinase 40, Pro-B-Type Natriuretic Peptide 8639H, Total Protein 7.0, Albumin 2.9L, Globulin 4.1, Albumin/Globulin Ratio 0.7L Height (Feet): 5 Height (Inches): 8.00 Weight (Pounds): 229 Cardiovascular: normal rate Respiratory/Chest: lungs clear Abdomen: soft Kelvin Buckley MD Feb 24, 2018 20:38
--- NOTE | 2018-02-24 21:43 | Consultation ---
History of Present Illness General Chief Complaint: Edema Present Illness HPI HPI: This is a 77 years old male with end-stage renal disease, on hemodialysis. He admitted for complaining of generalized body pain and swelling. Also, has possible pneumonia, borderline elevated troponin as well. The patient complains of shortness of breath. Denies cough. Denies orthopnea. Past medical history of end-stage renal disease, on hemodialysis. There is a shunt on the right arm, neck surgery. Also, right lower extremity fracture surgery, anemia panel has been ordered at this time and heme was consulted. Allergies: Coded Allergies: ASPIRIN (Verified Allergy, Unknown, 02/22/18) Medication History Scheduled Atorvastatin Calcium* (Atorvastatin Calcium*), 40 MG ORAL BEDTIME, (Reported) Calcium Acetate (Calcium Acetate), 667 MG PO THREE TIMES A DAY, (Reported) Metoprolol Tartrate* (Metoprolol Tartrate*), 25 MG ORAL EVERY 12 HOURS, ( Reported) Sevelamer Carbonate (Renvela), 800 MG ORAL THREE TIMES A DAY, (Reported) Miscellaneous Medications Ferrous Sulfate (Ferrous Sulfate), 1 TAB ORAL, (Reported) Folic Acid/Vitamin B Comp W-C (Renetta-Karina Tablet), 0.8 MG PO, (Reported) Patient History Healthcare decision maker N Resuscitation status Full Code Advanced Directive on File Review of Systems Constitutional: Denies: no symptoms, see HPI, chills, sweats, fever, malaise, weakness, other Eye: Denies: no symptoms, see HPI, eye pain, blurred vision, tearing, double vision, nose pain, nose congestion, acuity changes, discharge, other ENT: Denies: no symptoms, see HPI, ear pain, ear discharge, nose pain, nose congestion, throat pain, throat swelling, mouth pain, hearing loss, nasal discharge, other Respiratory: Denies: no symptoms, see HPI, cough, orthopnea, shortness of breath, stridor, wheezing, H[place], sputum, other Cardiovascular: Denies: no symptoms, see HPI, chest pain, edema, palpitations, syncope, PND, other Gastrointestinal: Denies: no symptoms, see HPI, abdominal pain, constipation, diarrhea, nausea, vomiting, melena, hematemesis, other Genitourinary: Denies: no symptoms, see HPI, discharge, dysuria, frequency, hematuria, pain, retention, incontinence, urgency, vag bleed/dc, other Musculoskeletal: Denies: no symptoms, see HPI, back pain, gout, joint pain, joint swelling, muscle pain, muscle stiffness, other Skin: Denies: no symptoms, see HPI, rash, change in color, change in hair/nails , dryness, lesions, other Psychiatric: Denies: no symptoms, see HPI, prior hx, anxiety, depressed feelings, emotional problems, SI, HI, hallucinations, other Neurological: Denies: no symptoms, see HPI, headache, numbness, paresthesia, seizure, tingling, tremors, focal weakness, syncope, dizziness, other Endocrine: Denies: no symptoms, see HPI, excessive sweating, flushing, intolerance to temperature, increased thirst, increased urine, unexplained weight loss, other Hematologic/Lymphatic: Denies: no symptoms, see HPI, anemia, blood clots, easy bleeding, easy bruising, swollen glands, diathesis, other Physical Exam Physical Exam Narrative PHYSICAL EXAMINATION: HEENT: PERRLA. NECK: Supple. No lymphadenopathy. CHEST: Clear to auscultation. CARDIOVASCULAR: Regular rate and rhythm. ABDOMEN: Soft. Positive bowel sounds. Distended. EXTREMITIES: No edema NEUROLOGIC: Generalized weakness on both sides. Last 24 Hour Vital Signs Date Time Temp Pulse Resp B/P (MAP) Pulse Ox O2 Delivery O2 Flow Rate FiO2 02/24/18 20:00 98.1 70 18 132/73 (92) 99 02/24/18 16:00 98.1 78 18 132/79 (96) 99 02/24/18 09:00 Room Air 02/24/18 08:48 113/70 02/24/18 08:48 90 113/70 02/24/18 08:00 97.1 90 20 113/70 (84) 98 02/24/18 04:00 98.2 70 17 112/75 (87) 100 02/24/18 00:00 97.9 72 18 110/69 (83) 100 02/23/18 21:58 75 116/67 02/23/18 21:30 Room Air Intake and Output 02/23/18 02/24/18 19:00 07:00 Intake Total 550 ml 120 ml Output Total 1500 ml Balance 550 ml -1380 ml Intake Oral 120 ml Other 550 ml Output Hemodialysis UF 1500 ml # Voids 1 Laboratory Tests Test 02/24/18 05:15 White Blood Count 7.3 K/UL (4.8-10.8) Red Blood Count 2.61 M/UL (4.70-6.10) L Hemoglobin 9.0 G/DL (14.2-18.0) L Hematocrit 27.2 % (42.0-52.0) L Mean Corpuscular Volume 104 FL (80-99) H Mean Corpuscular Hemoglobin 34.3 PG (27.0-31.0) H Mean Corpuscular Hemoglobin Concent 32.9 G/DL (32.0-36.0) Red Cell Distribution Width 12.7 % (11.6-14.8) Platelet Count 168 K/UL (150-450) Mean Platelet Volume 6.9 FL (6.5-10.1) Neutrophils (%) (Auto) 70.5 % (45.0-75.0) Lymphocytes (%) (Auto) 13.6 % (20.0-45.0) L Monocytes (%) (Auto) 14.2 % (1.0-10.0) H Eosinophils (%) (Auto) 0.6 % (0.0-3.0) Basophils (%) (Auto) 1.1 % (0.0-2.0) Sodium Level 134 MMOL/L (136-145) L Potassium Level 4.2 MMOL/L (3.5-5.1) Chloride Level 96 MMOL/L (98-107) L Carbon Dioxide Level 31 MMOL/L (21-32) Anion Gap 7 mmol/L (5-15) Blood Urea Nitrogen 27 mg/dL (7-18) H Creatinine 6.2 MG/DL (0.55-1.30) H Estimat Glomerular Filtration Rate mL/min (>60) Glucose Level 88 MG/DL (74-106) Uric Acid 4.0 MG/DL (2.6-7.2) Calcium Level 8.7 MG/DL (8.5-10.1) Phosphorus Level 3.7 MG/DL (2.5-4.9) Magnesium Level 1.8 MG/DL (1.8-2.4) Total Bilirubin 0.8 MG/DL (0.2-1.0) Aspartate Amino Transf (AST/SGOT) 20 U/L (15-37) Alanine Aminotransferase (ALT/SGPT) 16 U/L (12-78) Alkaline Phosphatase 89 U/L (46-116) Total Creatine Kinase 40 U/L (26-308) Pro-B-Type Natriuretic Peptide 8639 pg/mL (0-125) H Total Protein 7.0 G/DL (6.4-8.2) Albumin 2.9 G/DL (3.4-5.0) L Globulin 4.1 g/dL Albumin/Globulin Ratio 0.7 (1.0-2.7) L Height (Feet): 5 Height (Inches): 8.00 Weight (Pounds): 228 Medications Current Medications Medications (Trade) Dose Ordered Sig/Brandon Route PRN Reason Start Time Stop Time Status Last Admin Dose Admin Acetaminophen (Tylenol) 650 mg Q4H PRN ORAL Mild Pain/Temp > 100.5 02/23/18 00:45 03/25/18 00:44 Acetaminophen/ Hydrocodone Bitart ([place] 5/325) 1 tab Q6H PRN ORAL Severe Pain (Pain Scale 7-10) 02/23/18 01:45 03/02/18 01:44 02/24/18 04:40 Atorvastatin Calcium (Lipitor) 40 mg BEDTIME ORAL 02/23/18 21:00 03/25/18 20:59 02/23/18 21:58 Chlorhexidine Gluconate ([place]ever[place]-Hex 2%) 1 applic DAILY@1999 TOPIC 02/23/18 20:00 03/25/18 19:59 02/24/18 20:36 Clonidine HCl (Catapres Tab) 0.1 mg Q4H PRN ORAL bp over 165 syst 02/23/18 00:45 03/25/18 00:44 Clopidogrel Bisulfate (Plavix) 75 mg DAILY ORAL 02/24/18 09:00 03/26/18 08:59 02/24/18 08:47 Docusate Sodium (Colace) 100 mg THREE TIMES A DAY ORAL 02/23/18 09:00 03/25/18 08:59 02/24/18 18:18 Epoetin Ziyad (Procrit (for ESRD on dialysis)) 10,000 units SAT-SAT-SAT SUBQ 02/24/18 21:00 03/26/18 20:59 02/24/18 20:38 Heparin Sodium (Porcine) (Heparin 5000 units/ml) 5,000 units EVERY 12 HOURS SUBQ 02/23/18 09:00 03/25/18 08:59 02/24/18 20:39 Insulin Human Regular (NovoLIN R) 1 units NOVOLOGB SUBQ 02/23/18 06:30 03/25/18 06:29 Isosorbide Mononitrate (Imdur) 60 mg DAILY ORAL 02/25/18 09:00 03/25/18 08:59 Metoprolol Tartrate (Lopressor) 25 mg EVERY 12 HOURS ORAL 02/23/18 09:00 03/25/18 08:59 02/23/18 21:58 Ondansetron HCl (Zofran) 4 mg Q6H PRN IV Nausea & Vomiting 02/23/18 00:45 03/25/18 00:44 Pantoprazole (Protonix) 40 mg BID ORAL 02/23/18 18:00 03/25/18 06:29 02/24/18 18:14 Sevelamer Carbonate (Renvela) 800 mg THREE TIMES A DAY ORAL 02/23/18 09:00 03/25/18 08:59 02/24/18 18:18 Assessment/Plan Assessment/Plan Assessment/Recommendations # Anemia of chronic disease hgb 8-10 range with esrd --> anemia panel has been ordered and reviewd --> trend hgb 9 --> epogen sq 3x a week if getting HD --> ferritin goal >500, continue iron. Currently ferritin is 932 # ESRD graft right arm --> on HD in am again --> renal diet --> appreciate hd recs # Elevated Troponin --> 2D echo pending # Pleural effusion with atelectasis. --> observe off antibiotic. The timing of this note does not necessarily reflect the time of the patient was seen Greatly appreciate consultation! Oliver Cárdenas MD Feb 24, 2018 21:43
[2018-02-24 23:40] VITALS: BP 129/68
[2018-02-25 04:00] VITALS: BP 135/71
[2018-02-25] MEDS: Insulin Human Regular 100units/ml 3ml SUBQ SCH (05:45)
[2018-02-25 06:02] LABS: BASOPHILS % (AUTO) 1.5 % (0.0-2.0); EOSINOPHILS % (AUTO) 2.9 % (0.0-3.0); HEMATOCRIT 26.6 % (42.0-52.0); HEMOGLOBIN 8.8 G/DL (14.2-18.0); LYMPHOCYTES % (AUTO) 18.6 % (20.0-45.0); MEAN CORPUSCULAR VOLUME 104 FL (80-99); MONOCYTES % (AUTO) 18.3 % (1.0-10.0); NEUTROPHILS % (AUTO) 58.7 % (45.0-75.0); PLATELET COUNT 171 K/UL (150-450); RED BLOOD COUNT 2.56 M/UL (4.70-6.10); RED CELL DISTRIBUTION WIDTH 12.8 % (11.6-14.8); WHITE BLOOD COUNT 5.3 K/UL (4.8-10.8)
[2018-02-25 06:31] LABS: ALANINE AMINOTRANSFERASE 14 U/L (12-78); ALBUMIN 2.9 G/DL (3.4-5.0); ALBUMIN/GLOBULIN RATIO 0.7 (1.0-2.7); ALKALINE PHOSPHATASE 92 U/L (46-116); ANION GAP 8 mmol/L (5-15); ASPARTATE AMINO TRANSFERASE 20 U/L (15-37); BILIRUBIN,TOTAL 0.7 MG/DL (0.2-1.0); BLOOD UREA NITROGEN 37 mg/dL (7-18); CALCIUM 8.6 MG/DL (8.5-10.1); CARBON DIOXIDE 30 MMOL/L (21-32); CHLORIDE 97 MMOL/L (98-107); CREATININE 7.7 MG/DL (0.55-1.30); PHOSPHORUS 4.3 MG/DL (2.5-4.9); POTASSIUM 4.7 MMOL/L (3.5-5.1); SODIUM 135 MMOL/L (136-145)
--- NOTE | 2018-02-25 07:00 | NUR ---
HAND-OFF: Report given to HUAN Pablo. Endorsed to HUAN Pablo to call Dr. Velez to see the pt, and ask Dr. Limon if he wants to discharge the pt today.
--- NOTE | 2018-02-25 07:50 | NUR ---
NURSE NOTES: Received report from HUAN Clancy. patient in bed. alert, verbally responsive. no distress noted. call light within reach. bed in lowest position. will continue to monitor.
[2018-02-25 08:00] VITALS: BP 129/62
[2018-02-25] MEDS: Metoprolol 25mg tab ORAL SCH ×2 (09:31→22:19)
[2018-02-25] MEDS: Imdur 30mg tab ORAL SCH (09:31)
[2018-02-25] MEDS: Docusate 100mg cap ORAL SCH ×3 (09:31→17:57)
[2018-02-25] MEDS: Heparin 5000 units/ml inj SUBQ SCH ×2 (09:36→21:00)
[2018-02-25 12:00] VITALS: BP 105/54
--- NOTE | 2018-02-25 12:28 | Nephrology Progress Note ---
Assessment/Plan Problem List: (1) ESRD (end stage renal disease) on dialysis (2) Elevated troponin (3) Anemia in CKD (chronic kidney disease) Assessment ESRD graft right arm Obese CP elevated Troponin Anemia of CKD Plan EPO SQ HD today beta blockers Nitrate plavix gastric support renal diet per orders 2D echo 40% ej Fx Objective Objective Last 24 Hour Vital Signs Date Time Temp Pulse Resp B/P (MAP) Pulse Ox O2 Delivery O2 Flow Rate FiO2 02/25/18 09:31 129/67 02/25/18 09:31 81 129/62 02/25/18 09:00 Room Air 02/25/18 08:00 97.3 81 18 129/62 (84) 96 02/25/18 04:00 98.3 73 18 135/71 (92) 100 02/24/18 23:40 98.7 68 18 129/68 (88) 100 02/24/18 21:00 Room Air 02/24/18 20:00 98.1 70 18 132/73 (92) 99 02/24/18 16:00 98.1 78 18 132/79 (96) 99 Intake and Output 02/24/18 02/25/18 19:00 07:00 Intake Total 720 ml 200 ml Balance 720 ml 200 ml Intake Oral 720 ml 200 ml # Voids 3 Laboratory Tests 02/25/18 05:00: White Blood Count 5.3, Red Blood Count 2.56L, Hemoglobin 8.8L, Hematocrit 26.6L , Mean Corpuscular Volume 104H, Mean Corpuscular Hemoglobin 34.3H, Mean Corpuscular Hemoglobin Concent 33.0, Red Cell Distribution Width 12.8, Platelet Count 171, Mean Platelet Volume 6.9, Neutrophils (%) (Auto) 58.7, Lymphocytes (% ) (Auto) 18.6L, Monocytes (%) (Auto) 18.3H, Eosinophils (%) (Auto) 2.9, Basophils (%) (Auto) 1.5, Sodium Level 135L, Potassium Level 4.7, Chloride Level 97L, Carbon Dioxide Level 30, Anion Gap 8, Blood Urea Nitrogen 37H, Creatinine 7.7H, Estimat Glomerular Filtration Rate , Glucose Level 87, Calcium Level 8.6, Phosphorus Level 4.3, Magnesium Level 1.8, Total Bilirubin 0.7, Aspartate Amino Transf (AST/SGOT) 20, Alanine Aminotransferase (ALT/SGPT) 14, Alkaline Phosphatase 92, Troponin I 0.067H, C-Reactive Protein, Quantitative 5.2H, Total Protein 7.1, Albumin 2.9L, Globulin 4.2, Albumin/Globulin Ratio 0.7L Height (Feet): 5 Height (Inches): 8.00 Weight (Pounds): 229 Prasanna Arrington MD Feb 25, 2018 12:28
--- NOTE | 2018-02-25 12:49 | Infectious Diseases Prog Note ---
Assessment/Plan Assessment/Plan A: Pleural effusion Atelectasis Volume overload ESRD on HD Anemia DM HPN CHF ( EF=40%) P; observe off antibiotics Subjective ROS Limited/Unobtainable: No Constitutional: Reports: no symptoms Respiratory: Reports: no symptoms Cardiovascular: Reports: no symptoms Gastrointestinal/Abdominal: Reports: no symptoms Genitourinary: Reports: no symptoms Allergies: Coded Allergies: ASPIRIN (Verified Allergy, Unknown, 02/22/18) Objective Vital Signs Last 24 Hour Vital Signs Date Time Temp Pulse Resp B/P (MAP) Pulse Ox O2 Delivery O2 Flow Rate FiO2 02/25/18 12:00 98.2 77 18 105/54 (71) 95 02/25/18 09:31 129/67 02/25/18 09:31 81 129/62 02/25/18 09:00 Room Air 02/25/18 08:00 97.3 81 18 129/62 (84) 96 02/25/18 04:00 98.3 73 18 135/71 (92) 100 02/24/18 23:40 98.7 68 18 129/68 (88) 100 02/24/18 21:00 Room Air 02/24/18 20:00 98.1 70 18 132/73 (92) 99 02/24/18 16:00 98.1 78 18 132/79 (96) 99 Height (Feet): 5 Height (Inches): 8.00 Weight (Pounds): 229 General Appearance: no acute distress HEENT: mucous membranes moist Respiratory/Chest: lungs clear Cardiovascular: normal rate Abdomen: soft, non tender Extremities: no edema Neurologic/Psychiatric: alert, oriented x 3, responsive Microbiology Date/Time Source Procedure Growth Status 02/22/18 21:00 Blood Blood Culture - Preliminary NO GROWTH AFTER 48 HOURS Resulted 02/22/18 21:00 Blood Blood Culture - Preliminary NO GROWTH AFTER 48 HOURS Resulted 02/22/18 23:20 Nasal Nares MRSA Culture - Final NO METHICILLIN RESISTANT STAPH AUREUS... Complete 02/22/18 23:20 Rectum - Final NO CARBAPENEM-RESISTANT ENTEROBACTERI... Complete 02/22/18 23:20 Rectum VRE Culture - Final NO VANCOMYCIN RESISTANT ENTEROCOCCUS ... Complete Laboratory Tests Test 02/25/18 05:00 White Blood Count 5.3 K/UL (4.8-10.8) Red Blood Count 2.56 M/UL (4.70-6.10) L Hemoglobin 8.8 G/DL (14.2-18.0) L Hematocrit 26.6 % (42.0-52.0) L Mean Corpuscular Volume 104 FL (80-99) H Mean Corpuscular Hemoglobin 34.3 PG (27.0-31.0) H Mean Corpuscular Hemoglobin Concent 33.0 G/DL (32.0-36.0) Red Cell Distribution Width 12.8 % (11.6-14.8) Platelet Count 171 K/UL (150-450) Mean Platelet Volume 6.9 FL (6.5-10.1) Neutrophils (%) (Auto) 58.7 % (45.0-75.0) Lymphocytes (%) (Auto) 18.6 % (20.0-45.0) L Monocytes (%) (Auto) 18.3 % (1.0-10.0) H Eosinophils (%) (Auto) 2.9 % (0.0-3.0) Basophils (%) (Auto) 1.5 % (0.0-2.0) Sodium Level 135 MMOL/L (136-145) L Potassium Level 4.7 MMOL/L (3.5-5.1) Chloride Level 97 MMOL/L (98-107) L Carbon Dioxide Level 30 MMOL/L (21-32) Anion Gap 8 mmol/L (5-15) Blood Urea Nitrogen 37 mg/dL (7-18) H Creatinine 7.7 MG/DL (0.55-1.30) H Estimat Glomerular Filtration Rate mL/min (>60) Glucose Level 87 MG/DL (74-106) Calcium Level 8.6 MG/DL (8.5-10.1) Phosphorus Level 4.3 MG/DL (2.5-4.9) Magnesium Level 1.8 MG/DL (1.8-2.4) Total Bilirubin 0.7 MG/DL (0.2-1.0) Aspartate Amino Transf (AST/SGOT) 20 U/L (15-37) Alanine Aminotransferase (ALT/SGPT) 14 U/L (12-78) Alkaline Phosphatase 92 U/L (46-116) Troponin I 0.067 ng/mL (0.000-0.056) C-Reactive Protein, Quantitative 5.2 mg/dL (0.00-0.90) H Total Protein 7.1 G/DL (6.4-8.2) Albumin 2.9 G/DL (3.4-5.0) L Globulin 4.2 g/dL Albumin/Globulin Ratio 0.7 (1.0-2.7) L Current Medications Medications (Trade) Dose Ordered Sig/Brandon Route PRN Reason Start Time Stop Time Status Last Admin Dose Admin Acetaminophen (Tylenol) 650 mg Q4H PRN ORAL Mild Pain/Temp > 100.5 02/23/18 00:45 03/25/18 00:44 Acetaminophen/ Hydrocodone Bitart ([place] 5/325) 1 tab Q6H PRN ORAL Severe Pain (Pain Scale 7-10) 02/23/18 01:45 03/02/18 01:44 02/24/18 04:40 Atorvastatin Calcium (Lipitor) 40 mg BEDTIME ORAL 02/23/18 21:00 03/25/18 20:59 02/23/18 21:58 Chlorhexidine Gluconate (Beverly-Hex 2%) 1 applic DAILY@1999 TOPIC 02/23/18 20:00 03/25/18 19:59 02/24/18 20:36 Clonidine HCl (Catapres Tab) 0.1 mg Q4H PRN ORAL bp over 165 syst 02/23/18 00:45 03/25/18 00:44 Clopidogrel Bisulfate (Plavix) 75 mg DAILY ORAL 02/24/18 09:00 03/26/18 08:59 02/25/18 09:31 Docusate Sodium (Colace) 100 mg THREE TIMES A DAY ORAL 02/23/18 09:00 03/25/18 08:59 02/25/18 09:31 Epoetin Ziyad (Procrit (for ESRD on dialysis)) 10,000 units SAT-SAT-SAT SUBQ 02/24/18 21:00 03/26/18 20:59 02/24/18 20:38 Heparin Sodium (Porcine) (Heparin 5000 units/ml) 5,000 units EVERY 12 HOURS SUBQ 02/23/18 09:00 03/25/18 08:59 02/25/18 09:36 Insulin Human Regular (NovoLIN R) 1 units NOVOLOGB SUBQ 02/23/18 06:30 03/25/18 06:29 Isosorbide Mononitrate (Imdur) 60 mg DAILY ORAL 02/25/18 09:00 03/25/18 08:59 02/25/18 09:31 Metoprolol Tartrate (Lopressor) 25 mg EVERY 12 HOURS ORAL 02/23/18 09:00 03/25/18 08:59 02/25/18 09:31 Ondansetron HCl (Zofran) 4 mg Q6H PRN IV Nausea & Vomiting 02/23/18 00:45 03/25/18 00:44 Pantoprazole (Protonix) 40 mg BID ORAL 02/23/18 18:00 03/25/18 06:29 02/25/18 09:31 Sevelamer Carbonate (Renvela) 800 mg THREE TIMES A DAY ORAL 02/23/18 09:00 03/25/18 08:59 02/25/18 09:30 Soto Saunders MD Feb 25, 2018 12:49
--- NOTE | 2018-02-25 13:56 | Cardiology Progress Note ---
Assessment/Plan Assessment/Plan The patient is seen and examined, full consult note will be dictated. Objective Last 24 Hour Vital Signs Date Time Temp Pulse Resp B/P (MAP) Pulse Ox O2 Delivery O2 Flow Rate FiO2 02/25/18 12:00 98.2 77 18 105/54 (71) 95 02/25/18 09:31 129/67 02/25/18 09:31 81 129/62 02/25/18 09:00 Room Air 02/25/18 08:00 97.3 81 18 129/62 (84) 96 02/25/18 04:00 98.3 73 18 135/71 (92) 100 02/24/18 23:40 98.7 68 18 129/68 (88) 100 02/24/18 21:00 Room Air 02/24/18 20:00 98.1 70 18 132/73 (92) 99 02/24/18 16:00 98.1 78 18 132/79 (96) 99 Intake and Output 02/24/18 02/25/18 19:00 07:00 Intake Total 720 ml 200 ml Balance 720 ml 200 ml Intake Oral 720 ml 200 ml # Voids 3 Laboratory Tests Test 02/25/18 05:00 White Blood Count 5.3 K/UL (4.8-10.8) Red Blood Count 2.56 M/UL (4.70-6.10) L Hemoglobin 8.8 G/DL (14.2-18.0) L Hematocrit 26.6 % (42.0-52.0) L Mean Corpuscular Volume 104 FL (80-99) H Mean Corpuscular Hemoglobin 34.3 PG (27.0-31.0) H Mean Corpuscular Hemoglobin Concent 33.0 G/DL (32.0-36.0) Red Cell Distribution Width 12.8 % (11.6-14.8) Platelet Count 171 K/UL (150-450) Mean Platelet Volume 6.9 FL (6.5-10.1) Neutrophils (%) (Auto) 58.7 % (45.0-75.0) Lymphocytes (%) (Auto) 18.6 % (20.0-45.0) L Monocytes (%) (Auto) 18.3 % (1.0-10.0) H Eosinophils (%) (Auto) 2.9 % (0.0-3.0) Basophils (%) (Auto) 1.5 % (0.0-2.0) Sodium Level 135 MMOL/L (136-145) L Potassium Level 4.7 MMOL/L (3.5-5.1) Chloride Level 97 MMOL/L (98-107) L Carbon Dioxide Level 30 MMOL/L (21-32) Anion Gap 8 mmol/L (5-15) Blood Urea Nitrogen 37 mg/dL (7-18) H Creatinine 7.7 MG/DL (0.55-1.30) H Estimat Glomerular Filtration Rate mL/min (>60) Glucose Level 87 MG/DL (74-106) Calcium Level 8.6 MG/DL (8.5-10.1) Phosphorus Level 4.3 MG/DL (2.5-4.9) Magnesium Level 1.8 MG/DL (1.8-2.4) Total Bilirubin 0.7 MG/DL (0.2-1.0) Aspartate Amino Transf (AST/SGOT) 20 U/L (15-37) Alanine Aminotransferase (ALT/SGPT) 14 U/L (12-78) Alkaline Phosphatase 92 U/L (46-116) Troponin I 0.067 ng/mL (0.000-0.056) C-Reactive Protein, Quantitative 5.2 mg/dL (0.00-0.90) H Total Protein 7.1 G/DL (6.4-8.2) Albumin 2.9 G/DL (3.4-5.0) L Globulin 4.2 g/dL Albumin/Globulin Ratio 0.7 (1.0-2.7) L Microbiology Date/Time Source Procedure Growth Status 02/22/18 21:00 Blood Blood Culture - Preliminary NO GROWTH AFTER 48 HOURS Resulted 02/22/18 21:00 Blood Blood Culture - Preliminary NO GROWTH AFTER 48 HOURS Resulted 02/22/18 23:20 Nasal Nares MRSA Culture - Final NO METHICILLIN RESISTANT STAPH AUREUS... Complete 02/22/18 23:20 Rectum - Final NO CARBAPENEM-RESISTANT ENTEROBACTERI... Complete 02/22/18 23:20 Rectum VRE Culture - Final NO VANCOMYCIN RESISTANT ENTEROCOCCUS ... Complete Vickey Jorge MD Feb 25, 2018 13:56
[2018-02-25 16:00] VITALS: BP 111/65
--- NOTE | 2018-02-25 16:45 | Consultation ---
DATE OF CONSULTATION: 02/25/2018 CARDIOLOGY CONSULTATION CONSULTING PHYSICIAN: Vickey Jorge M.D. REFERRING PHYSICIAN: Kelvin Buckley M.D. REASON FOR CONSULTATION: Management of elevated troponin-I level non-ST elevation myocardial infarction. HISTORY OF PRESENT ILLNESS: The patient is a very unfortunate 77-year-old gentleman, who presents to emergency department on 02/22/2018 for evaluation of generalized pain and swelling. The patient is a resident of a nursing facility and apparently missed dialysis on 02/22/2018. The patient on arrival to the emergency department did not have any chest pain or shortness of breath; however his troponin I level was elevated at 0.068. His proBNP level was elevated at 10,671. His initial vital signs revealed blood pressure 132/79 mmHg and heart rate of 74. A 12-lead electrocardiogram was significant for sinus rhythm with no evidence of acute ST and T-wave abnormalities. A 12-lead electrocardiogram in the emergency department showed atrial rhythm with PVCs, baseline artifact, possible inferior infarct, age indeterminate. The patient was admitted to Med/Surg unit for evaluation of generalized weakness, possibly due to end-stage renal disease and missed dialysis. Cardiology consultation was made at request of Dr. Buckley for addressing elevation of troponin I level as well as possible congestive heart failure. PAST MEDICAL HISTORY: 1. End-stage renal disease on hemodialysis. 2. Anemia. 3. Diabetes mellitus. PAST SURGICAL HISTORY: AV shunt placement. MEDICATIONS: List of medications in the nursing facility includes atorvastatin 40 mg at bedtime, calcium acetate 667 mg p.o. three times a day, ferrous sulfate 325 one tablet daily, folic acid, Vitamin B complex well as vitamin C 0.8 mg p.o. three times a day this is Renetta-Karina, metoprolol 25 mg q.12 hours, Renvela 800 mg three times a day. ALLERGIES: Aspirin. SOCIAL HISTORY: Originally from [place]. There is no history of tobacco, alcohol, or illicit drug use. He is single. REVIEW OF SYSTEMS: HEENT: Denies any headache, diplopia, or blurred vision. CONSTITUTIONAL: Generalized weakness and pain but denies any fever, chills, or night sweats. CARDIOVASCULAR: Denies any chest pain, shortness breath, PND, orthopnea, leg swelling, or syncope. PULMONARY: Denies any cough, hemoptysis, or wheezing. GASTROINTESTINAL: Denies any nausea, vomiting, diarrhea, constipation, abdominal pain, or GI bleed. GENITOURINARY: Denies any hematuria. The patient on hemodialysis and missed dialysis on 02/22/2018. NEUROLOGY: Denies any motor dysfunction, sensory deficit, or altered speech. PHYSICAL EXAMINATION: VITAL SIGNS: At time of arrival to the hospital, blood pressure was 132/79, pulse of 74, respirations 18, temperature 97.5 degrees Fahrenheit, and O2 saturation 94% on room air. GENERAL: The patient is a very unfortunate 77-year-old gentleman, in no apparent respiratory distress. Alert and oriented x4. HEENT: Atraumatic and normocephalic. Anicteric. Pupils are equal, round, and reactive to light and accommodation. Extraocular muscles intact. NECK: JVP less than 5 cm. No carotid bruit. Carotid upstrokes 2+ bilaterally. CARDIOVASCULAR: Normal S1 and S2. Regular rate and rhythm. No murmurs, gallops, or rubs. LUNGS: Clear to auscultation bilaterally. ABDOMEN: Soft, nontender, and nondistended. No hepatosplenomegaly. Positive bowel sounds. EXTREMITIES: No evidence of edema, clubbing, or cyanosis. LABORATORY FINDINGS: At the time of arrival to the hospital, WBC was 7.3, hemoglobin 9.4, hematocrit of 28.3% and platelet count is 177. Sodium was 133, potassium is 4.9, chloride 97, bicarbonate 26, BUN of 44, creatinine 8.6, glucose 99, calcium 9.0. Troponin I was 0.068. ProBNP was 26314. Troponin number 2 was 0.71. Lipid panel shows triglyceride 93, total cholesterol 97, LDL of 54, HDL 25. TSH was 1.997. DIAGNOSTIC DATA: Chest x-ray showed cardiomegaly with pulmonary vascular congestion and pleural effusion left greater than the right with associated atelectasis and possible consolidation, questionable pneumonia. A 2D echocardiography in 02/23/2018 revealed normal global left ventricular wall hypokinesia with LVEF approximately 40%, mild LVH, large pleural effusion, moderate left atrial enlargement, mild mitral regurgitation, and mild pulmonary hypertension with RVSP approximately 40 mmHg, diastolic function could not be determined due to underlying atrial arrhythmias. ASSESSMENT AND PLAN: The patient is a very unfortunate 77-year-old gentleman, seen in Cardiology consultation. 1. Slight elevation of troponin I level could be secondary to type 2 non-ST elevation myocardial infarction versus troponin leak due to end-stage renal disease, the fact that the patient did not have any chest pain make me believe that latter is most likely the etiology of the elevated troponin I level. We would however discuss the patient possible left heart catheterization and coronary angiography in the future to address coronary anatomy. This decision is based on also the result of 2D echocardiography which has shown global left ventricular hypokinesia with LVEF of approximately 40%. I will discuss with Dr. Buckley regarding the transfer him to another facility that provides cardiac catheterization aminities. In the meantime, the patient will be continued on aspirin, statins and beta-blockers. 2. History of diabetes mellitus. The patient requires to be on aspirin and statins for prevention of vasculopathy. 3. Cardiomyopathy with LV systolic dysfunction. LVEF about 40%. Etiology of which is unknown; however one needs to rule out coronary artery disease. The patient will be a candidate for right and left heart catheterization. 4. History of end-stage renal disease on hemodialysis. 5. History of dyslipidemia with low HDL levels. The patient will be continued on atorvastatin. I would like to thank, , for the courtesy of this consultation. Vickey Jorge M.D. DR: Kyara JOB#: [id number] CC:
--- NOTE | 2018-02-25 19:15 | NUR ---
HAND-OFF: Report given to HUAN Altamirano.
--- NOTE | 2018-02-25 19:57 | NUR ---
NURSE NOTES: received patient in bed, asleep, no sign of discomfort noted. Patient is bedbound, has TLC at right femoral site, and right AV fistula for hemodialysis. Bed locked at the lowest position possible, on bed alarm, call light within easy reach, siderails up x2. Will continue to monitor patient and follow op with the plan of care.
[2018-02-25 20:00] VITALS: BP 141/68
--- NOTE | 2018-02-25 20:23 | General Progress Note ---
Assessment/Plan Assessment/Plan Assessment/Recommendations # Anemia of chronic disease hgb 8-10 range with esrd --> anemia panel has been ordered and reviewd --> trend hgb 9 --> epogen sq 3x a week if getting HD --> ferritin goal >500, continue iron. Currently ferritin is 932 # ESRD graft right arm --> on HD in am again --> renal diet --> appreciate hd recs # Elevated Troponin --> 2D echo pending # Pleural effusion with atelectasis. --> observe off antibiotic. The timing of this note does not necessarily reflect the time of the patient was seen Greatly appreciate consultation! Subjective Constitutional: Denies: no symptoms, chills, diaphoresis, fever, malaise, weakness, other HEENT: Denies: no symptoms, eye pain, blurred vision, tearing, double vision, ear pain, ear discharge, nose pain, nose congestion, throat pain, throat swelling, mouth pain, mouth swelling, other Cardiovascular: Denies: no symptoms, chest pain, edema, irregular heart rate, lightheadedness, palpitations, syncope, other Respiratory: Denies: no symptoms, cough, orthopnea, shortness of breath, SOB with excertion, SOB at rest, sputum, stridor, wheezing, other Gastrointestinal/Abdominal: Denies: no symptoms, abdomen distended, abdominal pain, black stools, tarry stools, blood in stool, constipated, diarrhea, difficulty swallowing, nausea, poor appetite, poor fluid intake, rectal bleeding , vomiting, other Genitourinary: Denies: no symptoms, burning, discharge, frequency, flank pain, hematuria, incontinence, pain, urgency, other Neurologic/Psychiatric: Denies: no symptoms, anxiety, depressed, emotional problems, headache, numbness, paresthesia, pre-existing deficit, seizure, tingling, tremors, weakness, other Endocrine: Denies: no symptoms, excessive sweating, flushing, intolerance to cold, intolerance to heat, increased hunger, increased thirst, increased urine, unexplained weight gain, unexplained weight loss, other Hematologic/Lymphatic: Denies: no symptoms, anemia, easy bleeding, easy bruising, other Allergies: Coded Allergies: ASPIRIN (Verified Allergy, Unknown, 02/22/18) Subjective 02/25: Pt is awake and comfortable. HD today, tolerated well, no events Objective Last 24 Hour Vital Signs Date Time Temp Pulse Resp B/P (MAP) Pulse Ox O2 Delivery O2 Flow Rate FiO2 02/25/18 16:00 97.7 75 18 111/65 (80) 98 02/25/18 12:00 98.2 77 18 105/54 (71) 95 02/25/18 09:31 129/67 02/25/18 09:31 81 129/62 02/25/18 09:00 Room Air 02/25/18 08:00 97.3 81 18 129/62 (84) 96 02/25/18 04:00 98.3 73 18 135/71 (92) 100 02/24/18 23:40 98.7 68 18 129/68 (88) 100 02/24/18 21:00 Room Air Intake and Output 02/24/18 02/25/18 19:00 07:00 Intake Total 720 ml 200 ml Balance 720 ml 200 ml Intake Oral 720 ml 200 ml # Voids 3 Laboratory Tests 02/25/18 05:00: White Blood Count 5.3, Red Blood Count 2.56L, Hemoglobin 8.8L, Hematocrit 26.6L , Mean Corpuscular Volume 104H, Mean Corpuscular Hemoglobin 34.3H, Mean Corpuscular Hemoglobin Concent 33.0, Red Cell Distribution Width 12.8, Platelet Count 171, Mean Platelet Volume 6.9, Neutrophils (%) (Auto) 58.7, Lymphocytes (% ) (Auto) 18.6L, Monocytes (%) (Auto) 18.3H, Eosinophils (%) (Auto) 2.9, Basophils (%) (Auto) 1.5, Sodium Level 135L, Potassium Level 4.7, Chloride Level 97L, Carbon Dioxide Level 30, Anion Gap 8, Blood Urea Nitrogen 37H, Creatinine 7.7H, Estimat Glomerular Filtration Rate , Glucose Level 87, Calcium Level 8.6, Phosphorus Level 4.3, Magnesium Level 1.8, Total Bilirubin 0.7, Aspartate Amino Transf (AST/SGOT) 20, Alanine Aminotransferase (ALT/SGPT) 14, Alkaline Phosphatase 92, Troponin I 0.067H, C-Reactive Protein, Quantitative 5.2H, Total Protein 7.1, Albumin 2.9L, Globulin 4.2, Albumin/Globulin Ratio 0.7L Height (Feet): 5 Height (Inches): 8.00 Weight (Pounds): 229 Objective PE: Vitals: reviewed General Appearance: A+O x2, NAD HEENT: normocephalic, atraumatic Neck: non-tender, normal alignment Respiratory/Chest: chest wall non-tender, lungs clear Cardiovascular/Chest: normal peripheral pulses, normal rate Abdomen: normal bowel sounds, non tender Extremities: decreased range of motion Oliver Cárdenas MD Feb 25, 2018 20:23
[2018-02-25] MEDS: Atorvastatin 80mg tab ORAL SCH (21:00)
--- NOTE | 2018-02-25 21:50 | General Progress Note ---
Assessment/Plan Problem List: (1) ESRD on dialysis ICD Codes: N18.6 - End stage renal disease; Z99.2 - Dependence on renal dialysis SNOMED: 861512968, [id number], [id number] (2) ESRD (end stage renal disease) on dialysis ICD Codes: N18.6 - End stage renal disease; Z99.2 - Dependence on renal dialysis SNOMED: 766066380 (3) Fluid overload ESRD Status: progressing Assessment/Plan missed diaylsis dc planning no acute events fluid overload improve Subjective ROS Limited/Unobtainable: Yes Allergies: Coded Allergies: ASPIRIN (Verified Allergy, Unknown, 02/22/18) Objective Last 24 Hour Vital Signs Date Time Temp Pulse Resp B/P (MAP) Pulse Ox O2 Delivery O2 Flow Rate FiO2 02/25/18 16:00 97.7 75 18 111/65 (80) 98 02/25/18 12:00 98.2 77 18 105/54 (71) 95 02/25/18 09:31 129/67 02/25/18 09:31 81 129/62 02/25/18 09:00 Room Air 02/25/18 08:00 97.3 81 18 129/62 (84) 96 02/25/18 04:00 98.3 73 18 135/71 (92) 100 02/24/18 23:40 98.7 68 18 129/68 (88) 100 Intake and Output 02/24/18 02/25/18 19:00 07:00 Intake Total 720 ml 200 ml Balance 720 ml 200 ml Intake Oral 720 ml 200 ml # Voids 3 Laboratory Tests 02/25/18 05:00: White Blood Count 5.3, Red Blood Count 2.56L, Hemoglobin 8.8L, Hematocrit 26.6L , Mean Corpuscular Volume 104H, Mean Corpuscular Hemoglobin 34.3H, Mean Corpuscular Hemoglobin Concent 33.0, Red Cell Distribution Width 12.8, Platelet Count 171, Mean Platelet Volume 6.9, Neutrophils (%) (Auto) 58.7, Lymphocytes (% ) (Auto) 18.6L, Monocytes (%) (Auto) 18.3H, Eosinophils (%) (Auto) 2.9, Basophils (%) (Auto) 1.5, Sodium Level 135L, Potassium Level 4.7, Chloride Level 97L, Carbon Dioxide Level 30, Anion Gap 8, Blood Urea Nitrogen 37H, Creatinine 7.7H, Estimat Glomerular Filtration Rate , Glucose Level 87, Calcium Level 8.6, Phosphorus Level 4.3, Magnesium Level 1.8, Total Bilirubin 0.7, Aspartate Amino Transf (AST/SGOT) 20, Alanine Aminotransferase (ALT/SGPT) 14, Alkaline Phosphatase 92, Troponin I 0.067H, C-Reactive Protein, Quantitative 5.2H, Total Protein 7.1, Albumin 2.9L, Globulin 4.2, Albumin/Globulin Ratio 0.7L Height (Feet): 5 Height (Inches): 8.00 Weight (Pounds): 229 Cardiovascular: normal rate Respiratory/Chest: lungs clear Abdomen: soft Kelvin Buckley MD Feb 25, 2018 21:50
[2018-02-25] MEDS: Dyna-Hex 2% Top Sol 2oz TOPIC SCH (22:17)
[2018-02-26] VITALS: BP 137/63
[2018-02-26 04:00] VITALS: BP 143/80
[2018-02-26] MEDS: Insulin Human Regular 100units/ml 3ml SUBQ SCH (06:30)
--- NOTE | 2018-02-26 07:30 | NUR ---
HAND-OFF: Report given to HUAN Catherine.
--- NOTE | 2018-02-26 07:33 | NUR ---
NURSE NOTES: Received report from HUAN Cueva. patient awake in bed. alert. verbally responsive. no distress noted. no c/o pain at this time. bed in lowest position. call light within reach. will continue to monitor.
[2018-02-26 08:00] VITALS: BP 133/66
[2018-02-26] MEDS: Metoprolol 25mg tab ORAL SCH ×2 (09:00→20:37)
[2018-02-26] MEDS: Heparin 5000 units/ml inj SUBQ SCH ×2 (09:00→20:43)
[2018-02-26] MEDS: Docusate 100mg cap ORAL SCH ×3 (09:00→17:59)
[2018-02-26] MEDS: Imdur 30mg tab ORAL SCH (09:00)
--- NOTE | 2018-02-26 09:19 | NUR ---
NURSE NOTES: Patient refused all morning medications. explained patient about risks and benefits. patient still refused all morning medications. vs 133/66/74, 18, 94%, 98.1 patient alert, verbally responsive. no distress noted. no c/o pain at this time. will continue to monitor.
[2018-02-26 12:00] VITALS: BP 144/79
--- NOTE | 2018-02-26 12:54 | NUR ---
NURSE NOTES: Patient refused all noon medications. explained risks and benefits to the patient, still refused. patient alert, verballu
--- NOTE | 2018-02-26 12:56 | NUR ---
NURSE NOTES: continue. verbally responsive. no distress noted. no c/o pain at this time. VS: BP144/79, HR80, RR18,T97.3, O295% RA. will continue to monitor.
--- NOTE | 2018-02-26 13:14 | NUR ---
CASE MANAGEMENT:REVIEW 02/26/18 SI: ESRD WITH OVERLOAD 97.3 95 18 144/79 95% ON RA H/H-8.8/26.6 BUN+37 CR+7.7 TROPONIN(+) 0.067 IS: LOPRESSOR PO Q12 IMDUR PO QD PROCRIT SQ MWF PLAVIX PO QD HEPARIN SQ 12 : MED/SURG STATUS 4 EAST PLAN: LAST DIALYZED YESTERDAY 02/25/18
--- NOTE | 2018-02-26 13:27 | NUR ---
DISCHARGE PLANNING UNABLE TO DISCHARGE PATIENT TODAY OUTPATIENT DIALYSIS NEEDS TO BE ARRANGED DOCUMENT RESTORER HAS ORDERED HEPATITIS PANEL STAT WILL REFER PATIENT TO [facility] FOR OUTPATIENT DIALYSIS ONCE DIALYSIS HAS BEEN ARRANGED WE CAN THEN DISCHARGE TO [place]....IF BED IS STILL AVAILABLE
--- NOTE | 2018-02-26 15:47 | Nephrology Progress Note ---
Assessment/Plan Problem List: (1) ESRD (end stage renal disease) on dialysis (2) Elevated troponin (3) Anemia in CKD (chronic kidney disease) (4) Cardiomyopathy Assessment ESRD graft right arm Obese CP elevated Troponin Anemia of CKD Plan EPO SQ HD in am beta blockers Nitrate plavix gastric support renal diet per orders 2D echo 40% ej Fx one dose dig add zestril Subjective ROS Limited/Unobtainable: No Constitutional: Reports: malaise Objective Objective Last 24 Hour Vital Signs Date Time Temp Pulse Resp B/P (MAP) Pulse Ox O2 Delivery O2 Flow Rate FiO2 02/26/18 12:00 97.3 95 18 144/79 (100) 95 02/26/18 09:00 Room Air 02/26/18 08:00 98.3 95 18 133/66 (88) 94 02/26/18 08:00 98.3 74 18 133/66 (88) 94 02/26/18 04:00 97.0 95 18 143/80 (101) 96 02/26/18 00:00 97.2 74 17 137/63 (87) 98 02/25/18 22:19 70 141/68 02/25/18 21:00 Room Air 02/25/18 20:00 97.9 70 17 141/68 (92) 100 02/25/18 16:00 97.7 75 18 111/65 (80) 98 Intake and Output 02/25/18 02/26/18 19:00 07:00 Intake Total 480 ml Output Total 1500 ml 300 ml Balance -1020 ml -300 ml Intake Oral 480 ml Output Urine Total 300 ml Hemodialysis UF 1500 ml # Voids 3 3 # Bowel Movements 1 Height (Feet): 5 Height (Inches): 8.00 Weight (Pounds): 227 General Appearance: no apparent distress Cardiovascular: tachycardia Respiratory/Chest: decreased breath sounds Abdomen: soft Prasanna Arrington MD Feb 26, 2018 15:47
[2018-02-26 16:00] VITALS: BP 132/68
[2018-02-26] MEDS ORDERED: Lisinopril 10mg tab ORAL SCH (16:00)
--- NOTE | 2018-02-26 16:13 | General Progress Note ---
Assessment/Plan Assessment/Plan Assessment/Recommendations # Anemia of chronic disease hgb 8-10 range with esrd --> anemia panel has been ordered and reviewd --> trend hgb 9 --> epogen sq 3x a week if getting HD --> ferritin goal >500, continue iron. Currently ferritin is 932 # ESRD graft right arm --> on HD in am again --> renal diet --> appreciate hd recs # Elevated Troponin --> 2D echo pending # Pleural effusion with atelectasis. --> observe off antibiotic. The timing of this note does not necessarily reflect the time of the patient was seen Greatly appreciate consultation! Subjective Constitutional: Denies: no symptoms, chills, diaphoresis, fever, malaise, weakness, other HEENT: Denies: no symptoms, eye pain, blurred vision, tearing, double vision, ear pain, ear discharge, nose pain, nose congestion, throat pain, throat swelling, mouth pain, mouth swelling, other Respiratory: Denies: no symptoms, cough, orthopnea, shortness of breath, SOB with excertion, SOB at rest, sputum, stridor, wheezing, other Gastrointestinal/Abdominal: Denies: no symptoms, abdomen distended, abdominal pain, black stools, tarry stools, blood in stool, constipated, diarrhea, difficulty swallowing, nausea, poor appetite, poor fluid intake, rectal bleeding , vomiting, other Genitourinary: Denies: no symptoms, burning, discharge, frequency, flank pain, hematuria, incontinence, pain, urgency, other Neurologic/Psychiatric: Denies: no symptoms, anxiety, depressed, emotional problems, headache, numbness, paresthesia, pre-existing deficit, seizure, tingling, tremors, weakness, other Endocrine: Denies: no symptoms, excessive sweating, flushing, intolerance to cold, intolerance to heat, increased hunger, increased thirst, increased urine, unexplained weight gain, unexplained weight loss, other Allergies: Coded Allergies: ASPIRIN (Verified Allergy, Unknown, 02/22/18) Subjective 02/25: Pt is awake and comfortable. HD today, tolerated well, no events 02/26 Pt is seen by bedside, awake, and confused, pt is refusing meds, HD in the am Objective Last 24 Hour Vital Signs Date Time Temp Pulse Resp B/P (MAP) Pulse Ox O2 Delivery O2 Flow Rate FiO2 02/26/18 12:00 97.3 95 18 144/79 (100) 95 02/26/18 09:00 Room Air 02/26/18 08:00 98.3 95 18 133/66 (88) 94 02/26/18 08:00 98.3 74 18 133/66 (88) 94 02/26/18 04:00 97.0 95 18 143/80 (101) 96 02/26/18 00:00 97.2 74 17 137/63 (87) 98 02/25/18 22:19 70 141/68 02/25/18 21:00 Room Air 02/25/18 20:00 97.9 70 17 141/68 (92) 100 Intake and Output 02/25/18 02/26/18 19:00 07:00 Intake Total 480 ml Output Total 1500 ml 300 ml Balance -1020 ml -300 ml Intake Oral 480 ml Output Urine Total 300 ml Hemodialysis UF 1500 ml # Voids 3 3 # Bowel Movements 1 Laboratory Tests 02/26/18 15:22: Prothrombin Time [Pending], Prothromb Time International Ratio [Pending] Height (Feet): 5 Height (Inches): 8.00 Weight (Pounds): 227 Objective PE: Vitals: reviewed General Appearance: A+O x2, NAD HEENT: normocephalic, atraumatic Neck: non-tender, normal alignment Respiratory/Chest: chest wall non-tender, lungs clear Cardiovascular/Chest: normal peripheral pulses, normal rate Abdomen: normal bowel sounds, non tender Extremities: decreased range of motion Oliver Cárdenas MD Feb 26, 2018 16:13
[2018-02-26 16:19] LABS: INR 1.1 (0.9-1.1)
--- NOTE | 2018-02-26 16:26 | NUR ---
NURSE NOTES: scheduled HD with [facility] on 02/27/2018. Spoke with Sarah for the schedule.
--- NOTE | 2018-02-26 16:59 | NUR ---
NURSE NOTES: Patient refused to take Digoxin 0.25mg tab po, lisinopril 10mg tab po. explained the risks and benefits to the patient. patient refused again. no distress noted. no c/o pain at this time. VS BP132/68, HR84, RR18, T97.7, 96% RA. will continue to monitor patient's condition.
[2018-02-26] MEDS ORDERED: NovoLOG Insulin Flexpen SUBQ SCH (17:30)
--- NOTE | 2018-02-26 18:03 | NUR ---
NURSE NOTES: Patient refused to take colace 100mg cap po, protonix 40mg tab po, Renvela 800mg tab po. explained risks and benefits to the patient. patient refused again. patient alert, verbally responsive. no distress, no c/o pain at this time. will continue to monitor.
--- NOTE | 2018-02-26 19:01 | NUR ---
HAND-OFF: Report given to HUAN Henriquez.
--- NOTE | 2018-02-26 19:30 | NUR ---
NURSE NOTES: Received patient in no apparent distress. Patient is sleeping in bed. PICC line noted on right femoral area, patent and intact. AV shunt noted on right upper arm, bruit and thrill present. Bed in lowest position. Call light within reach. Will continue to monitor.
[2018-02-26 20:00] VITALS: BP 125/67
[2018-02-26] MEDS: Dyna-Hex 2% Top Sol 2oz TOPIC SCH (20:33)
[2018-02-26] MEDS: Epogen (for ESRD on dialysis) SUBQ SCH (20:34)
[2018-02-26] MEDS: HYDROcodone/Acetamin 5/325 tab ORAL PRN (20:35)
[2018-02-26] MEDS: Atorvastatin 80mg tab ORAL SCH (20:36)
--- NOTE | 2018-02-26 22:32 | General Progress Note ---
Assessment/Plan Problem List: (1) ESRD on dialysis ICD Codes: N18.6 - End stage renal disease; Z99.2 - Dependence on renal dialysis SNOMED: 974895985, 712539626, [id number] (2) ESRD (end stage renal disease) on dialysis ICD Codes: N18.6 - End stage renal disease; Z99.2 - Dependence on renal dialysis SNOMED: 149537117 (3) Fluid overload ESRD Status: progressing Assessment/Plan missed diaylsis dc once hp dialysis is set up fluid overload improving Subjective ROS Limited/Unobtainable: Yes Allergies: Coded Allergies: ASPIRIN (Verified Allergy, Unknown, 02/22/18) Objective Last 24 Hour Vital Signs Date Time Temp Pulse Resp B/P (MAP) Pulse Ox O2 Delivery O2 Flow Rate FiO2 02/26/18 20:37 72 125/67 02/26/18 20:00 98.5 72 20 125/67 (86) 98 02/26/18 16:00 97.7 84 18 132/68 (89) 96 02/26/18 16:00 84 02/26/18 16:00 132/68 02/26/18 12:00 97.3 95 18 144/79 (100) 95 02/26/18 09:00 Room Air 02/26/18 08:00 98.3 95 18 133/66 (88) 94 02/26/18 08:00 98.3 74 18 133/66 (88) 94 02/26/18 04:00 97.0 95 18 143/80 (101) 96 02/26/18 00:00 97.2 74 17 137/63 (87) 98 Intake and Output 02/25/18 02/26/18 19:00 07:00 Intake Total 480 ml Output Total 1500 ml 300 ml Balance -1020 ml -300 ml Intake Oral 480 ml Output Urine Total 300 ml Hemodialysis UF 1500 ml # Voids 3 3 # Bowel Movements 1 Laboratory Tests 02/26/18 15:22: Prothrombin Time 11.8H, Prothromb Time International Ratio 1.1 02/26/18 18:25: Hepatitis B Surface Antigen [Pending], Hepatitis B Surface Antibody, Quant [ Pending], Hepatitis C Antibody [Pending] Height (Feet): 5 Height (Inches): 8.00 Weight (Pounds): 228 General Appearance: confused Neck: supple Cardiovascular: normal rate Respiratory/Chest: lungs clear Kelvin Buckley MD Feb 26, 2018 22:32
[2018-02-27] VITALS: BP 131/69
[2018-02-27 04:00] VITALS: BP 126/66
[2018-02-27] MEDS: NovoLOG Insulin Flexpen SUBQ SCH (06:06)
--- NOTE | 2018-02-27 07:26 | NUR ---
HAND-OFF: Report given to Radha PRESSLEY.
--- NOTE | 2018-02-27 07:48 | NUR ---
NURSE NOTES: Patient received in stable condition, eating breakfast in bed. Irish speaking, alertx2. Breathing unlabored on room air. Scheduled for dialysis today, shunt on right upper arm. Triple lumen PICC line on right femoral patent and intact. Denies pain at this time. Urinal by the bedside. Bed locked in low position. Call light within reach, will continue to monitor.
[2018-02-27 08:00] VITALS: BP 127/69
[2018-02-27] MEDS: Docusate 100mg cap ORAL SCH ×3 (09:16→16:55)
[2018-02-27] MEDS: Metoprolol 25mg tab ORAL SCH ×2 (09:16→20:55)
[2018-02-27] MEDS: Lisinopril 10mg tab ORAL SCH (09:16)
[2018-02-27] MEDS: Imdur 30mg tab ORAL SCH (09:17)
[2018-02-27] MEDS: Heparin 5000 units/ml inj SUBQ SCH ×2 (09:22→21:04)
--- NOTE | 2018-02-27 10:03 | NUR ---
RD ASSESSMENT & RECOMMENDATIONS SEE CARE ACTIVITY FOR COMPLETE ASSESSMENT DAILY ESTIMATED NEEDS: Needs based on ESRD on HD, Obese 78kg / adj 25-30 kcals/kg 1001-8371 total kcals 1.2-1.8 g protein/kg 94-140 g total protein Fluid per MD. On HD NUTRITION DIAGNOSIS: Increased protein needs r/t renal dysfunction as evidenced by pt w/ ESRD on HD CURRENT DIET: Renal / CCHO MED PO DIET RECOMMENDATIONS: Rec RENAL DIET only at this time ADDITIONAL RECOMMENDATIONS: 1) Obtain a calibrated bed scale wt POST HD 2) Add NEPRO 1 tetra colton daily w/ current variable po intake 3) Rec to remove CCHO Med diet d/t fair to variable po intake and good glycemic control
[2018-02-27] MEDS: HYDROcodone/Acetamin 5/325 tab ORAL PRN ×2 (11:24→16:55)
--- NOTE | 2018-02-27 12:21 | NUR ---
CASE MANAGEMENT:REVIEW 02/27/18 SI: ESRD WITH OVERLOAD 98.7 70 17 127/69 98% ON RA IS: LISINOPRIL PO QD LOPRESSOR PO Q12 IMDUR PO QD PROCRIT SQ MWF PLAVIX PO QD HEPARIN SQ Q12 : MED/SURG STATUS 4 EAST DCP: FROM [facility]
[2018-02-27 12:35] VITALS: BP 131/74
--- NOTE | 2018-02-27 12:51 | NUR ---
DISCHARGE PLANNING PATIENT HAS BEEN REFERRED TO [facility] T: [phone] F: [phone] 3 OUT OF 4 HEPATITIS PANEL RESULTS ARE AVAILABLE
--- NOTE | 2018-02-27 13:25 | Infectious Diseases Prog Note ---
Assessment/Plan Assessment/Plan A: Pleural effusion Atelectasis Volume overload ESRD on HD Anemia DM HPN CHF ( EF=40%) P; observe off antibiotics Subjective ROS Limited/Unobtainable: No Constitutional: Reports: no symptoms Cardiovascular: Reports: no symptoms Gastrointestinal/Abdominal: Reports: no symptoms Allergies: Coded Allergies: ASPIRIN (Verified Allergy, Unknown, 02/22/18) Objective Vital Signs Last 24 Hour Vital Signs Date Time Temp Pulse Resp B/P (MAP) Pulse Ox O2 Delivery O2 Flow Rate FiO2 02/27/18 12:35 98.5 73 19 131/74 (93) 98 02/27/18 09:17 126/66 02/27/18 09:16 126/66 02/27/18 09:16 72 126/66 02/27/18 09:00 Room Air 02/27/18 08:00 98.7 70 17 127/69 (88) 98 02/27/18 04:00 98.1 72 20 126/66 (86) 98 02/27/18 00:00 97.4 73 20 131/69 (89) 97 02/26/18 21:00 Room Air 02/26/18 20:37 72 125/67 02/26/18 20:00 98.5 72 20 125/67 (86) 98 02/26/18 16:00 97.7 84 18 132/68 (89) 96 02/26/18 16:00 84 02/26/18 16:00 132/68 Height (Feet): 5 Height (Inches): 8.00 Weight (Pounds): 228 General Appearance: no acute distress, other - obese HEENT: mucous membranes moist Respiratory/Chest: lungs clear Cardiovascular: normal rate Abdomen: soft, non tender Extremities: no edema Neurologic/Psychiatric: alert, oriented x 3, responsive Laboratory Tests Test 02/26/18 15:22 02/26/18 18:25 Prothrombin Time 11.8 SEC (9.30-11.50) H Prothromb Time International Ratio 1.1 (0.9-1.1) Hepatitis B Surface Antigen Negative (NEGATIVE) Hepatitis B Surface Antibody, Quant <8 mIU/mL Hepatitis C Antibody 0.2 S/CO (<0.80) Current Medications Medications (Trade) Dose Ordered Sig/Brandon Route PRN Reason Start Time Stop Time Status Last Admin Dose Admin Acetaminophen (Tylenol) 650 mg Q4H PRN ORAL Mild Pain/Temp > 100.5 02/23/18 00:45 03/25/18 00:44 Acetaminophen/ Hydrocodone Bitart ([place] 5/325) 1 tab Q6H PRN ORAL Severe Pain (Pain Scale 7-10) 02/23/18 01:45 03/02/18 01:44 02/27/18 11:24 Atorvastatin Calcium (Lipitor) 40 mg BEDTIME ORAL 02/23/18 21:00 03/25/18 20:59 02/26/18 20:36 Chlorhexidine Gluconate (Beverly-Hex 2%) 1 applic DAILY@2000 TOPIC 02/23/18 20:00 03/25/18 19:59 02/26/18 20:33 Clonidine HCl (Catapres Tab) 0.1 mg Q4H PRN ORAL bp over 165 syst 02/23/18 00:45 03/25/18 00:44 Clopidogrel Bisulfate (Plavix) 75 mg DAILY ORAL 02/24/18 09:00 03/26/18 08:59 02/27/18 09:16 Dextrose (Dextrose 50%) 25 ml Q30M PRN IV Hypoglycemia 02/26/18 16:30 03/28/18 16:29 Dextrose (Dextrose 50%) 50 ml Q30M PRN IV Hypoglycemia 02/26/18 16:30 03/28/18 16:29 Docusate Sodium (Colace) 100 mg THREE TIMES A DAY ORAL 02/23/18 09:00 03/25/18 08:59 02/27/18 12:13 Epoetin Ziyad (Procrit (for ESRD on dialysis)) 10,000 units SAT-SAT-SAT SUBQ 02/24/18 21:00 03/26/18 20:59 02/26/18 20:34 Heparin Sodium (Porcine) (Heparin 5000 units/ml) 5,000 units EVERY 12 HOURS SUBQ 02/23/18 09:00 03/25/18 08:59 02/27/18 09:22 Insulin Aspart (NovoLOG) ACBREAKFAST SUBQ 02/27/18 06:30 03/29/18 06:29 Isosorbide Mononitrate (Imdur) 60 mg DAILY ORAL 02/25/18 09:00 03/25/18 08:59 02/27/18 09:17 Lisinopril (Zestril) 5 mg DAILY ORAL 02/27/18 09:00 03/29/18 08:59 02/27/18 09:16 Metoprolol Tartrate (Lopressor) 25 mg EVERY 12 HOURS ORAL 02/26/18 21:00 03/27/18 20:59 02/27/18 09:16 Ondansetron HCl (Zofran) 4 mg Q6H PRN IV Nausea & Vomiting 02/23/18 00:45 03/25/18 00:44 Pantoprazole (Protonix) 40 mg BID ORAL 02/23/18 18:00 03/25/18 06:29 02/27/18 09:16 Sevelamer Carbonate (Renvela) 800 mg THREE TIMES A DAY ORAL 02/23/18 09:00 03/25/18 08:59 02/27/18 12:13 Soto Saunders MD Feb 27, 2018 13:25
--- NOTE | 2018-02-27 13:39 | General Progress Note ---
Assessment/Plan Assessment/Plan Assessment/Recommendations # Anemia of chronic disease hgb 8-10 range with esrd --> anemia panel has been ordered and reviewd --> trend hgb 9 --> epogen sq 3x a week if getting HD --> ferritin goal >500, continue iron. Currently ferritin is 932 # ESRD graft right arm --> on HD in am again --> renal diet --> appreciate hd recs --> appreciate renal recs # Elevated Troponin --> as per cards, monitor # Pleural effusion with atelectasis. --> observe off antibiotic. The timing of this note does not necessarily reflect the time of the patient was seen Greatly appreciate consultation! Subjective Constitutional: Denies: no symptoms, chills, diaphoresis, fever, malaise, weakness, other HEENT: Denies: no symptoms, eye pain, blurred vision, tearing, double vision, ear pain, ear discharge, nose pain, nose congestion, throat pain, throat swelling, mouth pain, mouth swelling, other Cardiovascular: Denies: no symptoms, chest pain, edema, irregular heart rate, lightheadedness, palpitations, syncope, other Gastrointestinal/Abdominal: Denies: no symptoms, abdomen distended, abdominal pain, black stools, tarry stools, blood in stool, constipated, diarrhea, difficulty swallowing, nausea, poor appetite, poor fluid intake, rectal bleeding , vomiting, other Genitourinary: Denies: no symptoms, burning, discharge, frequency, flank pain, hematuria, incontinence, pain, urgency, other Neurologic/Psychiatric: Denies: no symptoms, anxiety, depressed, emotional problems, headache, numbness, paresthesia, pre-existing deficit, seizure, tingling, tremors, weakness, other Endocrine: Denies: no symptoms, excessive sweating, flushing, intolerance to cold, intolerance to heat, increased hunger, increased thirst, increased urine, unexplained weight gain, unexplained weight loss, other Allergies: Coded Allergies: ASPIRIN (Verified Allergy, Unknown, 02/22/18) Subjective 02/25: Pt is awake and comfortable. HD today, tolerated well, no events 02/26 Pt is seen by bedside, awake, and confused, pt is refusing meds, HD in the am 02/27: hd is for today, off abx, seen by id, no complaints this am Objective Last 24 Hour Vital Signs Date Time Temp Pulse Resp B/P (MAP) Pulse Ox O2 Delivery O2 Flow Rate FiO2 02/27/18 12:35 98.5 73 19 131/74 (93) 98 02/27/18 09:17 126/66 02/27/18 09:16 126/66 02/27/18 09:16 72 126/66 02/27/18 09:00 Room Air 02/27/18 08:00 98.7 70 17 127/69 (88) 98 02/27/18 04:00 98.1 72 20 126/66 (86) 98 02/27/18 00:00 97.4 73 20 131/69 (89) 97 02/26/18 21:00 Room Air 02/26/18 20:37 72 125/67 02/26/18 20:00 98.5 72 20 125/67 (86) 98 02/26/18 16:00 97.7 84 18 132/68 (89) 96 02/26/18 16:00 84 02/26/18 16:00 132/68 Intake and Output 02/26/18 02/27/18 18:59 06:59 Intake Total 360 ml 170 ml Output Total 100 ml Balance 360 ml 70 ml Intake Oral 360 ml 170 ml Output Urine Total 100 ml Laboratory Tests 02/26/18 15:22: Prothrombin Time 11.8H, Prothromb Time International Ratio 1.1 02/26/18 18:25: Hepatitis B Surface Antigen Negative, Hepatitis B Surface Antibody, Quant <8, Hepatitis C Antibody 0.2 Height (Feet): 5 Height (Inches): 8.00 Weight (Pounds): 228 Objective PE: Vitals: reviewed General Appearance: A+O x2, NAD HEENT: normocephalic, atraumatic Neck: non-tender, normal alignment Respiratory/Chest: chest wall non-tender, lungs clear Cardiovascular/Chest: normal peripheral pulses, normal rate Abdomen: normal bowel sounds, non tender Extremities: decreased range of motion Oliver Cárdenas MD Feb 27, 2018 13:39
--- NOTE | 2018-02-27 15:16 | Nephrology Progress Note ---
Assessment/Plan Problem List: (1) ESRD (end stage renal disease) on dialysis (2) Elevated troponin (3) Anemia in CKD (chronic kidney disease) (4) Cardiomyopathy Assessment ESRD graft right arm Obese CP elevated Troponin Anemia of CKD Plan EPO SQ HD in progress now beta blockers Nitrate plavix gastric support renal diet per orders 2D echo 40% ej Fx one dose dig add zestril awaiting placement Subjective ROS Limited/Unobtainable: No Objective Objective Last 24 Hour Vital Signs Date Time Temp Pulse Resp B/P (MAP) Pulse Ox O2 Delivery O2 Flow Rate FiO2 02/27/18 12:35 98.5 73 19 131/74 (93) 98 02/27/18 09:17 126/66 02/27/18 09:16 126/66 02/27/18 09:16 72 126/66 02/27/18 09:00 Room Air 02/27/18 08:00 98.7 70 17 127/69 (88) 98 02/27/18 04:00 98.1 72 20 126/66 (86) 98 02/27/18 00:00 97.4 73 20 131/69 (89) 97 02/26/18 21:00 Room Air 02/26/18 20:37 72 125/67 02/26/18 20:00 98.5 72 20 125/67 (86) 98 02/26/18 16:00 97.7 84 18 132/68 (89) 96 02/26/18 16:00 84 02/26/18 16:00 132/68 Intake and Output 02/26/18 02/27/18 19:00 07:00 Intake Total 360 ml 170 ml Output Total 100 ml Balance 360 ml 70 ml Intake Oral 360 ml 170 ml Output Urine Total 100 ml Laboratory Tests 02/26/18 15:22: Prothrombin Time 11.8H, Prothromb Time International Ratio 1.1 02/26/18 18:25: Hepatitis B Surface Antigen Negative, Hepatitis B Surface Antibody, Quant <8, Hepatitis C Antibody 0.2 Height (Feet): 5 Height (Inches): 8.00 Weight (Pounds): 228 General Appearance: no apparent distress Objective no change Prasanna Arrington MD Feb 27, 2018 15:16
[2018-02-27 16:00] VITALS: BP 118/66
--- NOTE | 2018-02-27 19:51 | NUR ---
NURSE NOTES: Received patient in bed. On RA, no SOB, no acute distress, no c/o pain. R upper arm shunt thrill and bruit. PICC line on R femoral intact with dry dressing. In stable condition. Bed in lowest position, locked, alarms on. Call light in reach.
--- NOTE | 2018-02-27 19:58 | NUR ---
HAND-OFF: Report given to Lenka PRESSLEY.
[2018-02-27 20:00] VITALS: BP 93/51
--- NOTE | 2018-02-27 20:51 | General Progress Note ---
Assessment/Plan Problem List: (1) ESRD on dialysis ICD Codes: N18.6 - End stage renal disease; Z99.2 - Dependence on renal dialysis SNOMED: 468171141, 145025666, [id number] (2) ESRD (end stage renal disease) on dialysis ICD Codes: N18.6 - End stage renal disease; Z99.2 - Dependence on renal dialysis SNOMED: 452775422 (3) Fluid overload ESRD Status: progressing Assessment/Plan missed diaylsis awaiting HP DIAYLSYS SET UP NO SOB fluid overload improving Subjective ROS Limited/Unobtainable: Yes Allergies: Coded Allergies: ASPIRIN (Verified Allergy, Unknown, 02/22/18) Objective Last 24 Hour Vital Signs Date Time Temp Pulse Resp B/P (MAP) Pulse Ox O2 Delivery O2 Flow Rate FiO2 02/27/18 20:00 97.7 97 20 93/51 (65) 95 02/27/18 16:00 98.3 86 18 118/66 (83) 97 02/27/18 12:35 98.5 73 19 131/74 (93) 98 02/27/18 09:17 126/66 02/27/18 09:16 126/66 02/27/18 09:16 72 126/66 02/27/18 09:00 Room Air 02/27/18 08:00 98.7 70 17 127/69 (88) 98 02/27/18 04:00 98.1 72 20 126/66 (86) 98 02/27/18 00:00 97.4 73 20 131/69 (89) 97 02/26/18 21:00 Room Air Intake and Output 02/26/18 02/27/18 19:00 07:00 Intake Total 360 ml 170 ml Output Total 100 ml Balance 360 ml 70 ml Intake Oral 360 ml 170 ml Output Urine Total 100 ml Height (Feet): 5 Height (Inches): 8.00 Weight (Pounds): 228 Neck: supple Cardiovascular: normal rate Respiratory/Chest: lungs clear Abdomen: soft Kelvin Buckley MD Feb 27, 2018 20:51
[2018-02-27] MEDS: Atorvastatin 80mg tab ORAL SCH (20:59)
[2018-02-27] MEDS: Dyna-Hex 2% Top Sol 2oz TOPIC SCH (20:59)
--- NOTE | 2018-02-27 21:45 | NUR ---
NURSE NOTES: Patient noted with low bp at sbp 80's. Current BP is 83/52. Lowest BP noted 79/50. Patient is asymptomatic, current Pulse 80, Temp 97.7F, O2sat 95% RA, no pain. Placed HOB low, feet up, gave PO hydration. Notified Dr Arrington, no new order received.
--- NOTE | 2018-02-27 22:00 | NUR ---
NURSE NOTES: RECEIVED PATIENT FROM HUAN CALDERON; PATIENT LYING IN BED, AWAKE, ALERT. RN SPOKE TO DR. BUCHANAN REGARDING DECREASED BLOOD PRESSURE, NNO, CURRENT B/P 125/62. ORIENTED X3, ABLE TO VERBALIZE SIMPLE NEEDS IN [place], DENIES PAIN, NO SIGNS AND SYMPTOMS OF ACUTE CARDIO RESPIRATORY DISTRESS/SHORTNESS OF BREATH, DENIES CHEST PAIN. HD ACCESS TLC/RIGHT GROIN, HD 02/27/18, REMOVED 2L, NO ILL EFFECTS NOTED, (OLYGURIA). ASSISTED WITH PM CARE, TOLERATED WELL. NAD. ENCOURAGED PATIENT TO UTILIZE CALL LIGHT FOR ASSISTANCE, VERBALIZED UNDERSTANDING.
--- NOTE | 2018-02-27 23:52 | Cardiology Progress Note ---
Assessment/Plan Assessment/Plan 1. Slight elevation of troponin I level could be secondary to type 2 non-ST elevation myocardial infarction versus troponin leak due to end-stage renal disease, continue conservative management, 2D echocardiography which has shown global left ventricular hypokinesia with LVEF of approximately 40%, continue on aspirin, statins and beta-blockers. 2. History of diabetes mellitus, continue aspirin and statins. 3. Cardiomyopathy with LV systolic dysfunction with LVEF about 40%. Etiology of which is unknown; however one needs to rule out coronary artery disease. Will consider right and left heart catheterization. 4. History of end-stage renal disease on hemodialysis. 5. History of dyslipidemia with low HDL levels, on atorvastatin. Subjective Subjective Sinus rhythm at rate of 80. Objective Last 24 Hour Vital Signs Date Time Temp Pulse Resp B/P (MAP) Pulse Ox O2 Delivery O2 Flow Rate FiO2 02/27/18 21:00 Room Air 02/27/18 20:55 80 02/27/18 20:00 97.7 97 20 93/51 (65) 95 02/27/18 16:00 98.3 86 18 118/66 (83) 97 02/27/18 12:35 98.5 73 19 131/74 (93) 98 02/27/18 09:17 126/66 02/27/18 09:16 126/66 02/27/18 09:16 72 126/66 02/27/18 09:00 Room Air 02/27/18 08:00 98.7 70 17 127/69 (88) 98 02/27/18 04:00 98.1 72 20 126/66 (86) 98 02/27/18 00:00 97.4 73 20 131/69 (89) 97 Intake and Output 02/26/18 02/27/18 19:00 07:00 Intake Total 360 ml 170 ml Output Total 100 ml Balance 360 ml 70 ml Intake Oral 360 ml 170 ml Output Urine Total 100 ml 2D Echo: EF40%,Mild LVH,Mild LAE, Large PL. eff, RVSP 40,cannot assess diastolic fxn Objective HEENT: Atraumatic and normocephalic. Anicteric. Pupils are equal, round, and reactive to light and accommodation. Extraocular muscles intact. NECK: JVP less than 5 cm. No carotid bruit. Carotid upstrokes 2+ bilaterally. CARDIOVASCULAR: Normal S1 and S2. Regular rate and rhythm. No murmurs, gallops, or rubs. LUNGS: Clear to auscultation bilaterally. ABDOMEN: Soft, nontender, and nondistended. No hepatosplenomegaly. Positive bowel sounds. EXTREMITIES: No evidence of edema, clubbing, or cyanosis. Vickey Jorge MD Feb 27, 2018 23:52
[2018-02-28] VITALS: BP 104/56
[2018-02-28 04:00] VITALS: BP 117/58
[2018-02-28] MEDS: NovoLOG Insulin Flexpen SUBQ SCH (06:10)
--- NOTE | 2018-02-28 06:26 | NUR ---
NURSE NOTES: NO SIGNIFICANT CHANGE OF CONDITION NOTED THROUGHOUT THE NIGHT. SAFETY MAINTAINED. NAD.
--- NOTE | 2018-02-28 07:18 | NUR ---
HAND-OFF: Report given to tomas lal.
[2018-02-28 08:00] VITALS: BP 118/69
--- NOTE | 2018-02-28 08:14 | NUR ---
NURSE NOTES: received patient lying in bed, bedbound, no distress noted, no complaint of pain or discomfort. Patient right femoral IV access. Call light within easy reach, siderails upx2, bed locked at the lowest position possible. Will continue to monitor patient and follow up with the plan of care.
[2018-02-28] MEDS: Docusate 100mg cap ORAL SCH ×3 (09:00→18:00)
[2018-02-28] MEDS: Imdur 30mg tab ORAL SCH (09:28)
[2018-02-28] MEDS: Lisinopril 10mg tab ORAL SCH (09:28)
[2018-02-28] MEDS: Metoprolol 25mg tab ORAL SCH ×2 (09:28→21:00)
[2018-02-28] MEDS: Heparin 5000 units/ml inj SUBQ SCH ×2 (09:30→21:08)
--- NOTE | 2018-02-28 10:48 | Infectious Diseases Prog Note ---
Assessment/Plan Assessment/Plan A: Pleural effusion Atelectasis Volume overload ESRD on HD Anemia DM HPN CHF ( EF=40%) P; observe off antibiotics Subjective ROS Limited/Unobtainable: Yes Allergies: Coded Allergies: ASPIRIN (Verified Allergy, Unknown, 02/22/18) Objective Vital Signs Last 24 Hour Vital Signs Date Time Temp Pulse Resp B/P (MAP) Pulse Ox O2 Delivery O2 Flow Rate FiO2 02/28/18 09:28 118/69 02/28/18 09:28 84 118/69 02/28/18 09:28 118/69 02/28/18 08:00 98.8 84 20 118/69 (85) 97 02/28/18 04:00 98.1 83 20 117/58 (77) 95 02/28/18 00:00 97.7 97 20 104/56 (72) 95 02/27/18 21:00 Room Air 02/27/18 20:55 80 02/27/18 20:00 97.7 97 20 93/51 (65) 95 02/27/18 16:00 98.3 86 18 118/66 (83) 97 02/27/18 12:35 98.5 73 19 131/74 (93) 98 Height (Feet): 5 Height (Inches): 8.00 Weight (Pounds): 226 General Appearance: no acute distress HEENT: mucous membranes moist Respiratory/Chest: lungs clear Cardiovascular: normal rate Abdomen: soft, non tender Extremities: no edema Neurologic/Psychiatric: other - sleeping Current Medications Medications (Trade) Dose Ordered Sig/Brandon Route PRN Reason Start Time Stop Time Status Last Admin Dose Admin Acetaminophen (Tylenol) 650 mg Q4H PRN ORAL Mild Pain/Temp > 100.5 02/23/18 00:45 03/25/18 00:44 Acetaminophen/ Hydrocodone Bitart ([place] 5/325) 1 tab Q6H PRN ORAL Severe Pain (Pain Scale 7-10) 02/23/18 01:45 03/02/18 01:44 02/27/18 16:55 Atorvastatin Calcium (Lipitor) 40 mg BEDTIME ORAL 02/23/18 21:00 03/25/18 20:59 02/27/18 20:59 Chlorhexidine Gluconate (Beverly-Hex 2%) 1 applic DAILY@1999 TOPIC 02/23/18 20:00 03/25/18:59 02/27/18 20:59 Clonidine HCl (Catapres Tab) 0.1 mg Q4H PRN ORAL bp over 165 syst 02/23/18 00:45 03/25/18 00:44 Clopidogrel Bisulfate (Plavix) 75 mg DAILY ORAL 02/24/18 09:00 03/26/18 08:59 02/28/18 09:28 Dextrose (Dextrose 50%) 25 ml Q30M PRN IV Hypoglycemia 02/26/18 16:30 03/28/18 16:29 Dextrose (Dextrose 50%) 50 ml Q30M PRN IV Hypoglycemia 02/26/18 16:30 03/28/18 16:29 Docusate Sodium (Colace) 100 mg THREE TIMES A DAY ORAL 02/23/18 09:00 03/25/18 08:59 02/27/18 16:55 Epoetin Ziyad (Procrit (for ESRD on dialysis)) 10,000 units SAT-SAT-SAT SUBQ 02/24/18 21:00 03/26/18 20:59 02/26/18 20:34 Heparin Sodium (Porcine) (Heparin 5000 units/ml) 5,000 units EVERY 12 HOURS SUBQ 02/23/18 09:00 03/25/18 08:59 02/28/18 09:30 Insulin Aspart (NovoLOG) ACBREAKFAST SUBQ 02/27/18 06:30 03/29/18 06:29 Isosorbide Mononitrate (Imdur) 60 mg DAILY ORAL 02/25/18 09:00 03/25/18 08:59 02/28/18 09:28 Lisinopril (Zestril) 5 mg DAILY ORAL 02/27/18 09:00 03/29/18 08:59 02/28/18 09:28 Metoprolol Tartrate (Lopressor) 25 mg EVERY 12 HOURS ORAL 02/26/18 21:00 03/27/18 20:59 02/28/18 09:28 Ondansetron HCl (Zofran) 4 mg Q6H PRN IV Nausea & Vomiting 02/23/18 00:45 03/25/18 00:44 Pantoprazole (Protonix) 40 mg BID ORAL 02/23/18 18:00 03/25/18 06:29 02/28/18 09:27 Sevelamer Carbonate (Renvela) 800 mg THREE TIMES A DAY ORAL 02/23/18 09:00 03/25/18 08:59 02/28/18 09:27 Soto Saunders MD Feb 28, 2018 10:48
[2018-02-28 12:00] VITALS: BP 104/59
--- NOTE | 2018-02-28 13:15 | Nephrology Progress Note ---
Assessment/Plan Problem List: (1) ESRD (end stage renal disease) on dialysis (2) Elevated troponin (3) Anemia in CKD (chronic kidney disease) (4) Cardiomyopathy Assessment ESRD graft right arm Obese CP elevated Troponin Anemia of CKD Plan EPO SQ HD in am beta blockers Nitrate plavix gastric support renal diet per orders 2D echo 40% ej Fx one dose dig add zestril awaiting placement Subjective ROS Limited/Unobtainable: No Constitutional: Reports: malaise Objective Objective Last 24 Hour Vital Signs Date Time Temp Pulse Resp B/P (MAP) Pulse Ox O2 Delivery O2 Flow Rate FiO2 02/28/18 12:00 98.2 71 20 104/59 (74) 95 02/28/18 09:28 118/69 02/28/18 09:28 84 118/69 02/28/18 09:28 118/69 02/28/18 09:00 Room Air 02/28/18 08:00 98.8 84 20 118/69 (85) 97 02/28/18 04:00 98.1 83 20 117/58 (77) 95 02/28/18 00:00 97.7 97 20 104/56 (72) 95 02/27/18 21:00 Room Air 02/27/18 20:55 80 02/27/18 20:00 97.7 97 20 93/51 (65) 95 02/27/18 16:00 98.3 86 18 118/66 (83) 97 Intake and Output 02/27/18 02/28/18 18:59 06:59 Intake Total 240 ml Output Total 2000 ml 200 ml Balance -2000 ml 40 ml Intake Oral 240 ml Output Urine Total 200 ml Hemodialysis UF 2000 ml Height (Feet): 5 Height (Inches): 8.00 Weight (Pounds): 226 General Appearance: no apparent distress Cardiovascular: normal rate Respiratory/Chest: decreased breath sounds Abdomen: soft Objective no change Prasanna Arrington MD Feb 28, 2018 13:15
--- NOTE | 2018-02-28 13:33 | NUR ---
DISCHARGE PLANNING CALLED LAB AND SPOKE WITH NEFTALY Doty IS STILL PENDING BECAUSE ALEXIS SENDS IT OUT Addendum: 02/28/18 at 1603 by CHER JOINER LVN LVN PATIENT IS EXPECTED TO RETURN TO [place] ONCE WE HAVE THE COMPLETE HEP PANEL AND [facility] HAVE VERIFIED CHAIR DAY AND TIME
[2018-02-28 16:00] VITALS: BP 106/63
--- NOTE | 2018-02-28 16:04 | NUR ---
CASE MANAGEMENT:REVIEW 02/28/18 SI: ESRD WITH OVERLOAD 98.2 71 20 104/59 95% ON RA IS: LISINOPRIL PO QD LOPRESSOR PO Q12 IMDUR PO QD PROCRIT SQ MWF PLAVIX PO QD HEPARIN SQ Q12 : MED/SURG STATUS 4 EAST DCP: FROM [place] CONV PLAN: DC BACK TO [place] ONCE WE HAVE COMPLETED HEP PANEL AND CONFIRMED CHAIR DATE AND TIME
[2018-02-28] MEDS: HYDROcodone/Acetamin 5/325 tab ORAL PRN (19:05)
--- NOTE | 2018-02-28 19:30 | NUR ---
HAND-OFF: Report given to HUAN Michaud.
--- NOTE | 2018-02-28 19:46 | General Progress Note ---
Assessment/Plan Assessment/Plan Assessment/Recommendations # Anemia of chronic disease hgb 8-10 range with esrd --> anemia panel has been ordered and reviewd --> trend hgb 9-->8.8 --> epogen sq 3x a week if getting HD --> ferritin goal >500, continue iron. Currently ferritin is 932 # ESRD graft right arm --> on HD 3x/week --> renal diet --> appreciate hd recs --> appreciate renal recs # Elevated Troponin --> as per cards, monitor # Pleural effusion with atelectasis. --> observe off antibiotic as per ID The timing of this note does not necessarily reflect the time of the patient was seen Greatly appreciate consultation! Subjective Constitutional: Denies: no symptoms, chills, diaphoresis, fever, malaise, weakness, other Cardiovascular: Denies: no symptoms, chest pain, edema, irregular heart rate, lightheadedness, palpitations, syncope, other Respiratory: Denies: no symptoms, cough, orthopnea, shortness of breath, SOB with excertion, SOB at rest, sputum, stridor, wheezing, other Genitourinary: Denies: no symptoms, burning, discharge, frequency, flank pain, hematuria, incontinence, pain, urgency, other Neurologic/Psychiatric: Denies: no symptoms, anxiety, depressed, emotional problems, headache, numbness, paresthesia, pre-existing deficit, seizure, tingling, tremors, weakness, other Allergies: Coded Allergies: ASPIRIN (Verified Allergy, Unknown, 02/22/18) Subjective 02/25: Pt is awake and comfortable. HD today, tolerated well, no events 02/26 Pt is seen by bedside, awake, and confused, pt is refusing meds, HD in the am 02/27: hd is for today, off abx, seen by id, no complaints this am 02/28: bedbound, no complaints, potential dc once placed and hep e is neg Objective Last 24 Hour Vital Signs Date Time Temp Pulse Resp B/P (MAP) Pulse Ox O2 Delivery O2 Flow Rate FiO2 02/28/18 16:00 97.9 80 20 106/63 (77) 95 02/28/18 12:00 98.2 71 20 104/59 (74) 95 02/28/18 09:28 118/69 1/18/19 09:28 84 118/69 02/28/18 09:28 118/69 02/28/18 09:00 Room Air 02/28/18 08:00 98.8 84 20 118/69 (85) 97 02/28/18 04:00 98.1 83 20 117/58 (77) 95 02/28/18 00:00 97.7 97 20 104/56 (72) 95 02/27/18 21:00 Room Air 02/27/18 20:55 80 02/27/18 20:00 97.7 97 20 93/51 (65) 95 Intake and Output 02/27/18 02/28/18 19:00 07:00 Intake Total 240 ml Output Total 2000 ml 200 ml Balance -2000 ml 40 ml Intake Oral 240 ml Output Urine Total 200 ml Hemodialysis UF 2000 ml Height (Feet): 5 Height (Inches): 8.00 Weight (Pounds): 226 General Appearance: WD/WN Neck: non-tender Objective PE: Vitals: reviewed General Appearance: A+O x2, NAD HEENT: normocephalic, atraumatic Neck: non-tender, normal alignment Respiratory/Chest: chest wall non-tender, lungs clear Cardiovascular/Chest: normal peripheral pulses, normal rate Abdomen: normal bowel sounds, non tender Extremities: decreased range of motion Oliver Cárdenas MD Feb 28, 2018 19:46
--- NOTE | 2018-02-28 19:47 | NUR ---
NURSE NOTES: Received patient in bed, asleep. No SOB, no acute distress noted. Bed in lowest position, locked, alarms on. Call light in reach. Scheduled for dialysis tomorrow with [facility]. AM nurse left msg, will call back and confirm.
[2018-02-28 20:00] VITALS: BP 93/47
[2018-02-28] MEDS: Dyna-Hex 2% Top Sol 2oz TOPIC SCH (21:07)
[2018-02-28] MEDS: Atorvastatin 20mg tab ORAL SCH (21:07)
[2018-02-28] MEDS: Epogen (for ESRD on dialysis) SUBQ SCH (21:08)
--- NOTE | 2018-02-28 21:41 | General Progress Note ---
Assessment/Plan Problem List: (1) ESRD on dialysis ICD Codes: N18.6 - End stage renal disease; Z99.2 - Dependence on renal dialysis SNOMED: 433045998, 557307534, [id number] (2) ESRD (end stage renal disease) on dialysis ICD Codes: N18.6 - End stage renal disease; Z99.2 - Dependence on renal dialysis SNOMED: 582088347 (3) Fluid overload ESRD Status: progressing Assessment/Plan missed diaylsis awaiting [facility] DIAYLSYS SET UP w hep panel esrd on hd lyte abnormality fluid overload improving Subjective ROS Limited/Unobtainable: Yes Allergies: Coded Allergies: ASPIRIN (Verified Allergy, Unknown, 02/22/18) Objective Last 24 Hour Vital Signs Date Time Temp Pulse Resp B/P (MAP) Pulse Ox O2 Delivery O2 Flow Rate FiO2 02/28/18 21:00 Room Air 02/28/18 21:00 76 93/47 02/28/18 20:00 97.7 76 19 93/47 (62) 100 02/28/18 16:00 97.9 80 20 106/63 (77) 95 02/28/18 12:00 98.2 71 20 104/59 (74) 95 02/28/18 09:28 118/69 02/28/18 09:28 84 118/69 02/28/18 09:28 118/69 02/28/18 09:00 Room Air 02/28/18 08:00 98.8 84 20 118/69 (85) 97 02/28/18 04:00 98.1 83 20 117/58 (77) 95 02/28/18 00:00 97.7 97 20 104/56 (72) 95 Intake and Output 02/27/18 02/28/18 19:00 07:00 Intake Total 240 ml Output Total 2000 ml 200 ml Balance -2000 ml 40 ml Intake Oral 240 ml Output Urine Total 200 ml Hemodialysis UF 2000 ml Height (Feet): 5 Height (Inches): 8.00 Weight (Pounds): 219 Neck: supple Cardiovascular: normal rate Respiratory/Chest: lungs clear Abdomen: soft Kelvin Buckley MD Feb 28, 2018 21:40
--- NOTE | 2018-02-28 22:00 | NUR ---
NURSE NOTES: Spoke to Gissel at [facility] to confirm dialysis appointment tomorrow.
--- NOTE | 2018-02-28 23:53 | Cardiology Progress Note ---
Assessment/Plan Assessment/Plan 1. Slight elevation of troponin I level could be secondary to type 2 non-ST elevation myocardial infarction versus troponin leak due to end-stage renal disease, continue conservative management, 2D echocardiography which has shown global left ventricular hypokinesia with LVEF of approximately 40%, continue on aspirin, statins and beta-blockers. 2. History of diabetes mellitus, continue aspirin and statins. 3. Cardiomyopathy with LV systolic dysfunction with LVEF about 40%. Etiology of which is unknown; however one needs to rule out coronary artery disease. Will consider right and left heart catheterization. 4. History of end-stage renal disease on hemodialysis. 5. History of dyslipidemia with low HDL levels, on atorvastatin. Subjective Subjective Sinus rhythm at rate of 76. Objective Last 24 Hour Vital Signs Date Time Temp Pulse Resp B/P (MAP) Pulse Ox O2 Delivery O2 Flow Rate FiO2 02/28/18 21:00 Room Air 02/28/18 21:00 76 93/47 02/28/18 20:00 97.7 76 19 93/47 (62) 100 02/28/18 16:00 97.9 80 20 106/63 (77) 95 02/28/18 12:00 98.2 71 20 104/59 (74) 95 02/28/18 09:28 118/69 02/28/18 09:28 84 118/69 02/28/18 09:28 118/69 02/28/18 09:00 Room Air 02/28/18 08:00 98.8 84 20 118/69 (85) 97 02/28/18 04:00 98.1 83 20 117/58 (77) 95 02/28/18 00:00 97.7 97 20 104/56 (72) 95 Intake and Output 02/27/18 02/28/18 19:00 07:00 Intake Total 240 ml Output Total 2000 ml 200 ml Balance -2000 ml 40 ml Intake Oral 240 ml Output Urine Total 200 ml Hemodialysis UF 2000 ml 2D Echo: EF40%,Mild LVH,Mild LAE, Large PL. eff, RVSP 40,cannot assess diastolic fx Microbiology Date/Time Source Procedure Growth Status 02/26/18 10:40 Nasal Nares MRSA Culture - Final NO METHICILLIN RESISTANT STAPH AUREUS... Complete Objective HEENT: Atraumatic and normocephalic. Anicteric. Pupils are equal, round, and reactive to light and accommodation. Extraocular muscles intact. NECK: JVP less than 5 cm. No carotid bruit. Carotid upstrokes 2+ bilaterally. CARDIOVASCULAR: Normal S1 and S2. Regular rate and rhythm. No murmurs, gallops, or rubs. LUNGS: Clear to auscultation bilaterally. ABDOMEN: Soft, nontender, and nondistended. No hepatosplenomegaly. Positive bowel sounds. EXTREMITIES: No evidence of edema, clubbing, or cyanosis. Vickey Jorge MD Feb 28, 2018 23:53
[2018-03-01] VITALS: BP 110/57
[2018-03-01] MEDS: HYDROcodone/Acetamin 5/325 tab ORAL PRN (03:08)
[2018-03-01 04:00] VITALS: BP 105/65
--- NOTE | 2018-03-01 04:09 | NUR ---
Labs for AM collected via PICC line. Given to photo lab specialist.
[2018-03-01] MEDS: NovoLOG Insulin Flexpen SUBQ SCH (05:49)
[2018-03-01 07:21] LABS: EOSINOPHILS % (AUTO) 4.2 % (0.0-3.0); HEMATOCRIT 25.1 % (42.0-52.0); HEMOGLOBIN 8.2 G/DL (14.2-18.0); LYMPHOCYTES % (AUTO) 16.5 % (20.0-45.0); MEAN CORPUSCULAR VOLUME 104 FL (80-99); MONOCYTES % (AUTO) 15.7 % (1.0-10.0); NEUTROPHILS % (AUTO) 62.6 % (45.0-75.0); PLATELET COUNT 126 K/UL (150-450); RED BLOOD COUNT 2.41 M/UL (4.70-6.10); RED CELL DISTRIBUTION WIDTH 13.3 % (11.6-14.8); WHITE BLOOD COUNT 5.1 K/UL (4.8-10.8)
--- NOTE | 2018-03-01 07:30 | NUR ---
NURSE NOTES: Received pt from [facility]. Pt is alert and orient x3. No SOB or acute respiratory distress noted. pt has PICC R femoral SL. Pt has intact TERENCE dialysis shunt. troponin is 0.059, Dr MELENDEZ and Dr BURDEN are aware. pt has dialysis today, will F/U. all needs attended, bed is locked and is in the lowest position. call light within easy reach. will continue to monitor.
[2018-03-01 08:00] VITALS: BP 127/86
[2018-03-01 08:17] LABS: ALANINE AMINOTRANSFERASE 11 U/L (12-78); ALBUMIN 2.7 G/DL (3.4-5.0); ALBUMIN/GLOBULIN RATIO 0.7 (1.0-2.7); ALKALINE PHOSPHATASE 88 U/L (46-116); ANION GAP 6 mmol/L (5-15); ASPARTATE AMINO TRANSFERASE 20 U/L (15-37); BILIRUBIN,TOTAL 0.7 MG/DL (0.2-1.0); BLOOD UREA NITROGEN 28 mg/dL (7-18); CALCIUM 8.4 MG/DL (8.5-10.1); CARBON DIOXIDE 32 MMOL/L (21-32); CHLORIDE 97 MMOL/L (98-107); CHOLESTEROL 81 MG/DL (< 200); CREATININE 6.7 MG/DL (0.55-1.30); GAMMA GLUTAMYL TRANSPEPTIDASE 95 U/L (5-85); HDL CHOLESTEROL 25 MG/DL (40-60); PHOSPHORUS 3.5 MG/DL (2.5-4.9); POTASSIUM 3.7 MMOL/L (3.5-5.1); SODIUM 135 MMOL/L (136-145); TRIGLYCERIDES 97 MG/DL (30-150)
[2018-03-01] MEDS: Heparin 5000 units/ml inj SUBQ SCH ×2 (09:00→20:53)
[2018-03-01] MEDS: Docusate 100mg cap ORAL SCH ×3 (09:43→18:02)
[2018-03-01] MEDS: Lisinopril 10mg tab ORAL SCH (09:43)
[2018-03-01] MEDS: Metoprolol 25mg tab ORAL SCH ×2 (09:44→20:52)
[2018-03-01] MEDS: Imdur 30mg tab ORAL SCH (09:44)
--- NOTE | 2018-03-01 10:13 | NUR ---
SS note Chart reviewed; no SW needs/concerns identified at this time. Patient will transfer back to SNF when medically cleared.
--- NOTE | 2018-03-01 11:31 | Nephrology Progress Note ---
Assessment/Plan Problem List: (1) ESRD (end stage renal disease) on dialysis (2) Elevated troponin (3) Anemia in CKD (chronic kidney disease) (4) Cardiomyopathy Assessment ESRD graft right arm Obese CP elevated Troponin Anemia of CKD Plan EPO SQ HD 03/01 beta blockers Nitrate plavix gastric support renal diet per orders 2D echo 40% ej Fx one dose dig add zestril awaiting placement Subjective ROS Limited/Unobtainable: No Objective Objective Last 24 Hour Vital Signs Date Time Temp Pulse Resp B/P (MAP) Pulse Ox O2 Delivery O2 Flow Rate FiO2 03/01/18 09:44 84 127/86 03/01/18 09:44 127/86 03/01/18 09:43 127/86 03/01/18 09:00 Room Air 03/01/18 08:00 97.9 84 17 127/86 (100) 97 03/01/18 04:00 97.6 84 20 105/65 (78) 97 03/01/18 00:00 97.6 75 19 110/57 (74) 95 02/28/18 21:00 Room Air 02/28/18 21:00 76 93/47 02/28/18 20:00 97.7 76 19 93/47 (62) 100 02/28/18 16:00 97.9 80 20 106/63 (77) 95 02/28/18 12:00 98.2 71 20 104/59 (74) 95 Intake and Output 02/28/18 03/01/18 19:00 07:00 Intake Total 320 ml 120 ml Output Total 150 ml Balance 170 ml 120 ml Intake Oral 320 ml 120 ml Output Urine Total 150 ml # Voids 1 Laboratory Tests 03/01/18 04:00: White Blood Count 5.1, Red Blood Count 2.41L, Hemoglobin 8.2L, Hematocrit 25.1L , Mean Corpuscular Volume 104H, Mean Corpuscular Hemoglobin 34.2H, Mean Corpuscular Hemoglobin Concent 32.8, Red Cell Distribution Width 13.3, Platelet Count 126L, Mean Platelet Volume 6.7, Neutrophils (%) (Auto) 62.6, Lymphocytes ( %) (Auto) 16.5L, Monocytes (%) (Auto) 15.7H, Eosinophils (%) (Auto) 4.2H, Basophils (%) (Auto) 1.0, Sodium Level 135L, Potassium Level 3.7, Chloride Level 97L, Carbon Dioxide Level 32, Anion Gap 6, Blood Urea Nitrogen 28H, Creatinine 6.7H, Estimat Glomerular Filtration Rate , Glucose Level 92, Uric Acid 4.1, Calcium Level 8.4L, Phosphorus Level 3.5, Magnesium Level 1.9, Total Bilirubin 0.7, Gamma Glutamyl Transpeptidase 95H, Aspartate Amino Transf (AST/ SGOT) 20, Alanine Aminotransferase (ALT/SGPT) 11L, Alkaline Phosphatase 88, Troponin I 0.059H, C-Reactive Protein, Quantitative 5.9H, Pro-B-Type Natriuretic Peptide 8711H, Total Protein 6.7, Albumin 2.7L, Globulin 4.0, Albumin/Globulin Ratio 0.7L, Triglycerides Level 97, Cholesterol Level 81, LDL Cholesterol 41, HDL Cholesterol 25L, Cholesterol/HDL Ratio 3.2L, Cortisol AM Sample [Pending] Height (Feet): 5 Height (Inches): 8.00 Weight (Pounds): 219 General Appearance: no apparent distress Objective no change Prasanna Arrington MD Mar 01, 2018 11:31
[2018-03-01 12:00] VITALS: BP 129/80
[2018-03-01 16:00] VITALS: BP 140/67
--- NOTE | 2018-03-01 17:15 | Cardiology Progress Note ---
Assessment/Plan Assessment/Plan 1. Slight elevation of troponin I level could be secondary to type 2 non-ST elevation myocardial infarction versus troponin leak due to end-stage renal disease, continue conservative management, 2D echocardiography which has shown global left ventricular hypokinesia with LVEF of approximately 40%, continue on aspirin, statins and beta-blockers. 2. History of diabetes mellitus, continue aspirin and statins. 3. Cardiomyopathy with LV systolic dysfunction with LVEF about 40%. Etiology of which is unknown; however one needs to rule out coronary artery disease. Will consider right and left heart catheterization. 4. History of end-stage renal disease on hemodialysis. 5. History of dyslipidemia with low HDL levels, on atorvastatin. Subjective Subjective Sinus rhythm at rate of 76. Objective Last 24 Hour Vital Signs Date Time Temp Pulse Resp B/P (MAP) Pulse Ox O2 Delivery O2 Flow Rate FiO2 03/01/18 16:01 Room Air 03/01/18 16:00 98.1 76 19 140/67 (91) 98 03/01/18 12:00 98.8 76 19 129/80 (96) 97 03/01/18 09:44 84 127/86 03/01/18 09:44 127/86 03/01/18 09:43 127/86 03/01/18 09:00 Room Air 03/01/18 08:00 97.9 84 17 127/86 (100) 97 03/01/18 04:00 97.6 84 20 105/65 (78) 97 03/01/18 00:00 97.6 75 19 110/57 (74) 95 02/28/18 21:00 Room Air 02/28/18 21:00 76 93/47 02/28/18 20:00 97.7 76 19 93/47 (62) 100 Intake and Output 02/28/18 03/01/18 18:59 06:59 Intake Total 320 ml 120 ml Output Total 150 ml Balance 170 ml 120 ml Intake Oral 320 ml 120 ml Output Urine Total 150 ml # Voids 1 2D Echo: EF40%,Mild LVH,Mild LAE, Large PL. eff, RVSP 40,cannot assess diastolic fx Laboratory Tests Test 03/01/18 04:00 White Blood Count 5.1 K/UL (4.8-10.8) Red Blood Count 2.41 M/UL (4.70-6.10) L Hemoglobin 8.2 G/DL (14.2-18.0) L Hematocrit 25.1 % (42.0-52.0) L Mean Corpuscular Volume 104 FL (80-99) H Mean Corpuscular Hemoglobin 34.2 PG (27.0-31.0) H Mean Corpuscular Hemoglobin Concent 32.8 G/DL (32.0-36.0) Red Cell Distribution Width 13.3 % (11.6-14.8) Platelet Count 126 K/UL (150-450) L Mean Platelet Volume 6.7 FL (6.5-10.1) Neutrophils (%) (Auto) 62.6 % (45.0-75.0) Lymphocytes (%) (Auto) 16.5 % (20.0-45.0) L Monocytes (%) (Auto) 15.7 % (1.0-10.0) H Eosinophils (%) (Auto) 4.2 % (0.0-3.0) H Basophils (%) (Auto) 1.0 % (0.0-2.0) Sodium Level 135 MMOL/L (136-145) L Potassium Level 3.7 MMOL/L (3.5-5.1) Chloride Level 97 MMOL/L (98-107) L Carbon Dioxide Level 32 MMOL/L (21-32) Anion Gap 6 mmol/L (5-15) Blood Urea Nitrogen 28 mg/dL (7-18) H Creatinine 6.7 MG/DL (0.55-1.30) H Estimat Glomerular Filtration Rate mL/min (>60) Glucose Level 92 MG/DL (74-106) Uric Acid 4.1 MG/DL (2.6-7.2) Calcium Level 8.4 MG/DL (8.5-10.1) L Phosphorus Level 3.5 MG/DL (2.5-4.9) Magnesium Level 1.9 MG/DL (1.8-2.4) Total Bilirubin 0.7 MG/DL (0.2-1.0) Gamma Glutamyl Transpeptidase 95 U/L (5-85) H Aspartate Amino Transf (AST/SGOT) 20 U/L (15-37) Alanine Aminotransferase (ALT/SGPT) 11 U/L (12-78) L Alkaline Phosphatase 88 U/L (46-116) Troponin I 0.059 ng/mL (0.000-0.056) C-Reactive Protein, Quantitative 5.9 mg/dL (0.00-0.90) H Pro-B-Type Natriuretic Peptide 8711 pg/mL (0-125) H Total Protein 6.7 G/DL (6.4-8.2) Albumin 2.7 G/DL (3.4-5.0) L Globulin 4.0 g/dL Albumin/Globulin Ratio 0.7 (1.0-2.7) L Triglycerides Level 97 MG/DL (30-150) Cholesterol Level 81 MG/DL (< 200) LDL Cholesterol 41 mg/dL (<100) HDL Cholesterol 25 MG/DL (40-60) L Cholesterol/HDL Ratio 3.2 (3.3-4.4) L Cortisol AM Sample Pending Objective HEENT: Atraumatic and normocephalic. Anicteric. Pupils are equal, round, and reactive to light and accommodation. Extraocular muscles intact. NECK: JVP less than 5 cm. No carotid bruit. Carotid upstrokes 2+ bilaterally. CARDIOVASCULAR: Normal S1 and S2. Regular rate and rhythm. No murmurs, gallops, or rubs. LUNGS: Clear to auscultation bilaterally. ABDOMEN: Soft, nontender, and nondistended. No hepatosplenomegaly. Positive bowel sounds. EXTREMITIES: No evidence of edema, clubbing, or cyanosis. Vickey Jorge MD Mar 01, 2018 17:15
--- NOTE | 2018-03-01 18:53 | General Progress Note ---
Assessment/Plan Problem List: (1) ESRD on dialysis ICD Codes: N18.6 - End stage renal disease; Z99.2 - Dependence on renal dialysis SNOMED: 099965355, [id number], 971721010 (2) ESRD (end stage renal disease) on dialysis ICD Codes: N18.6 - End stage renal disease; Z99.2 - Dependence on renal dialysis SNOMED: 502478915 (3) Fluid overload ESRD Status: progressing Assessment/Plan missed diaylsis awaiting [facility] DIAYLSYS SET UP w hep panel esrd on hd no change \check lytes afebrile fluid overload improving Subjective ROS Limited/Unobtainable: Yes Allergies: Coded Allergies: ASPIRIN (Verified Allergy, Unknown, 02/22/18) Objective Last 24 Hour Vital Signs Date Time Temp Pulse Resp B/P (MAP) Pulse Ox O2 Delivery O2 Flow Rate FiO2 03/01/18 16:01 Room Air 03/01/18 16:00 98.1 76 19 140/67 (91) 98 03/01/18 12:00 98.8 76 19 129/80 (96) 97 03/01/18 09:44 84 127/86 03/01/18 09:44 127/86 03/01/18 09:43 127/86 03/01/18 09:00 Room Air 03/01/18 08:00 97.9 84 17 127/86 (100) 97 03/01/18 04:00 97.6 84 20 105/65 (78) 97 03/01/18 00:00 97.6 75 19 110/57 (74) 95 02/28/18 21:00 Room Air 02/28/18 21:00 76 93/47 02/28/18 20:00 97.7 76 19 93/47 (62) 100 Intake and Output 02/28/18 03/01/18 18:59 06:59 Intake Total 320 ml 120 ml Output Total 150 ml Balance 170 ml 120 ml Intake Oral 320 ml 120 ml Output Urine Total 150 ml # Voids 1 Laboratory Tests 03/01/18 04:00: White Blood Count 5.1, Red Blood Count 2.41L, Hemoglobin 8.2L, Hematocrit 25.1L , Mean Corpuscular Volume 104H, Mean Corpuscular Hemoglobin 34.2H, Mean Corpuscular Hemoglobin Concent 32.8, Red Cell Distribution Width 13.3, Platelet Count 126L, Mean Platelet Volume 6.7, Neutrophils (%) (Auto) 62.6, Lymphocytes ( %) (Auto) 16.5L, Monocytes (%) (Auto) 15.7H, Eosinophils (%) (Auto) 4.2H, Basophils (%) (Auto) 1.0, Sodium Level 135L, Potassium Level 3.7, Chloride Level 97L, Carbon Dioxide Level 32, Anion Gap 6, Blood Urea Nitrogen 28H, Creatinine 6.7H, Estimat Glomerular Filtration Rate , Glucose Level 92, Uric Acid 4.1, Calcium Level 8.4L, Phosphorus Level 3.5, Magnesium Level 1.9, Total Bilirubin 0.7, Gamma Glutamyl Transpeptidase 95H, Aspartate Amino Transf (AST/ SGOT) 20, Alanine Aminotransferase (ALT/SGPT) 11L, Alkaline Phosphatase 88, Troponin I 0.059H, C-Reactive Protein, Quantitative 5.9H, Pro-B-Type Natriuretic Peptide 8711H, Total Protein 6.7, Albumin 2.7L, Globulin 4.0, Albumin/Globulin Ratio 0.7L, Triglycerides Level 97, Cholesterol Level 81, LDL Cholesterol 41, HDL Cholesterol 25L, Cholesterol/HDL Ratio 3.2L, Cortisol AM Sample [Pending] Height (Feet): 5 Height (Inches): 8.00 Weight (Pounds): 221 Neck: supple Cardiovascular: normal rate Respiratory/Chest: lungs clear Abdomen: soft Kelvin Buckley MD Mar 01, 2018 18:53
--- NOTE | 2018-03-01 19:12 | NUR ---
HAND-OFF: Report given to HUAN GARZON.
[2018-03-01 20:00] VITALS: BP 126/54
[2018-03-01] MEDS: Dyna-Hex 2% Top Sol 2oz TOPIC SCH (20:52)
[2018-03-01] MEDS: Atorvastatin 20mg tab ORAL SCH (20:52)
--- NOTE | 2018-03-01 21:14 | NUR ---
NURSE NOTES: patient received. Patient in no acute distress at this time. patient complains of no pain at this time. patient awake and alert x3-4. confused at times. patient IV intact and asymptomatic. patient SCDs are on. bed in lowest position and locked. call light within reach. will continue to monitor.
[2018-03-02] VITALS: BP 125/61
[2018-03-02 04:00] VITALS: BP 141/75
[2018-03-02] MEDS: NovoLOG Insulin Flexpen SUBQ SCH (06:30)
--- NOTE | 2018-03-02 07:18 | NUR ---
HAND-OFF: Report given to HUAN felix.
--- NOTE | 2018-03-02 07:45 | NUR ---
NURSE NOTES: Received patient in bed, awake, and alert, No distress noted, no complaint of pain or discomfort. Patient right femoral PICC line access. Call light and needs within reach, Bed locked at the lowest position possible, Will continue to monitor patient and follow up with the plan of care.
[2018-03-02 08:00] VITALS: BP 141/58
[2018-03-02] MEDS: Docusate 100mg cap ORAL SCH ×3 (08:30→17:56)
[2018-03-02] MEDS: Imdur 30mg tab ORAL SCH (08:30)
[2018-03-02] MEDS: Metoprolol 25mg tab ORAL SCH ×2 (08:31→20:37)
[2018-03-02] MEDS: Heparin 5000 units/ml inj SUBQ SCH ×2 (08:32→21:00)
[2018-03-02] MEDS: Lisinopril 10mg tab ORAL SCH (08:32)
--- NOTE | 2018-03-02 09:00 | NUR ---
NURSE NOTES: Patient refused AM medication, educated patient the importance of medication, but, patient insisted, he said " I don't need medication, It is too much medication," Charge nurse explained benefit and risk, Will continue monitor patient's change of condition.
[2018-03-02 12:00] VITALS: BP_SYST 131; BP_SYST 139; BP_DIAS 78; BP_DIAS 88
--- NOTE | 2018-03-02 12:08 | Nephrology Progress Note ---
Assessment/Plan Problem List: (1) ESRD (end stage renal disease) on dialysis (2) Elevated troponin (3) Anemia in CKD (chronic kidney disease) (4) Cardiomyopathy Assessment ESRD graft right arm Obese CP elevated Troponin Anemia of CKD Plan EPO SQ HD 03/03 beta blockers Nitrate plavix gastric support renal diet per orders 2D echo 40% ej Fx one dose dig add zestril awaiting placement Subjective ROS Limited/Unobtainable: No Objective Objective Last 24 Hour Vital Signs Date Time Temp Pulse Resp B/P (MAP) Pulse Ox O2 Delivery O2 Flow Rate FiO2 03/02/18 09:00 Room Air 03/02/18 08:00 98.8 72 18 141/58 (85) 95 03/02/18 04:00 98.1 77 20 141/75 (97) 93 03/02/18 00:00 97.3 71 20 125/61 (82) 93 03/01/18 21:00 Room Air 03/01/18 20:52 76 140/67 03/01/18 20:00 98.2 77 19 126/54 (78) 92 03/01/18 16:01 Room Air 03/01/18 16:00 98.1 76 19 140/67 (91) 98 Intake and Output 03/01/18 03/02/18 19:00 07:00 Intake Total 120 ml Output Total 2000 ml Balance -2000 ml 120 ml Intake Oral 120 ml Hemodialysis UF 2000 ml Height (Feet): 5 Height (Inches): 8.00 Weight (Pounds): 222 General Appearance: no apparent distress Cardiovascular: normal rate Respiratory/Chest: decreased breath sounds Abdomen: soft Objective no change Prasanna Arrington MD Mar 02, 2018 12:08
--- NOTE | 2018-03-02 12:59 | NUR ---
CASE MANAGEMENT:REVIEW 03/02/18 SI: ESRD WITH OVERLOAD T 98.8 HR 72 RR 18 B/P 141/58 SATS 95% ON RA NO LABS TODAY IS: LISINOPRIL PO QD LOPRESSOR PO Q12H IMDUR PO QD PROCRIT SUBQ MWF PLAVIX PO QD HEPARIN SUBQ Q12H : MED/SURG STATUS 4 EAST DCP: FROM [facility] CONV PLAN: DC BACK TO [facility] ONCE WE HAVE CONFIRMED CHAIR DATE AND TIME
--- NOTE | 2018-03-02 13:06 | NUR ---
DISCHARGE PLANNING: NOTE HEP PANEL RESULTS FAXED TO [facility] T: [phone] F: [phone] Addendum: 03/03/18 at 0916 by SYMONE CARRILLO CM SPOKE TO CHHAYA WITH [facility] T:[phone] PATIENT SHARE TIME IS - - AT 1:30 P.M. STARTS THIS SATURDAY.
--- NOTE | 2018-03-02 15:24 | NUR ---
NURSE NOTES: Called [facility] dialysis center and informed Dialysis nurseOliver that patient is scheduled for dialysis on 03/03/18.
[2018-03-02 16:00] VITALS: BP 112/54
--- NOTE | 2018-03-02 16:03 | NUR ---
NURSE NOTES: Received hepatitis panel result and placed paper in the patient's chart.
--- NOTE | 2018-03-02 19:13 | NUR ---
NURSE NOTES: Received patient on bed awake, no s/s of any distress, denies any pain, Right femoral triple lumen central line patent and intact. Bed in low position and locked, call light within reach, will continue to monitor.
--- NOTE | 2018-03-02 19:13 | NUR ---
HAND-OFF: Report given to HUAN Carrasco.
[2018-03-02 20:00] VITALS: BP 132/61
--- NOTE | 2018-03-02 20:08 | Cardiology Progress Note ---
Assessment/Plan Assessment/Plan 1. Slight elevation of troponin I level could be secondary to type 2 non-ST elevation myocardial infarction versus troponin leak due to end-stage renal disease, continue conservative management, 2D echocardiography which has shown global left ventricular hypokinesia with LVEF of approximately 40%, continue on aspirin, statins and beta-blockers. 2. History of diabetes mellitus, continue aspirin and statins. 3. Cardiomyopathy with LV systolic dysfunction with LVEF about 40%. Etiology of which is unknown; however one needs to rule out coronary artery disease. Will consider right and left heart catheterization. 4. History of end-stage renal disease on hemodialysis. 5. History of dyslipidemia with low HDL levels, on atorvastatin. Subjective Subjective Not on the telemetry monitoring. No cardiac events. Objective Last 24 Hour Vital Signs Date Time Temp Pulse Resp B/P (MAP) Pulse Ox O2 Delivery O2 Flow Rate FiO2 03/02/18 16:00 98.6 84 17 112/54 (73) 94 03/02/18 12:00 98.8 76 19 139/88 (105) 96 03/02/18 09:00 Room Air 03/02/18 08:00 98.8 72 18 141/58 (85) 95 03/02/18 04:00 98.1 77 20 141/75 (97) 93 03/02/18 00:00 97.3 71 20 125/61 (82) 93 03/01/18 21:00 Room Air 03/01/18 20:52 76 140/67 Intake and Output 03/01/18 03/02/18 18:59 06:59 Intake Total 120 ml Output Total 2000 ml Balance -2000 ml 120 ml Intake Oral 120 ml Hemodialysis UF 2000 ml 2D Echo: EF40%,Mild LVH,Mild LAE, Large PL. eff, RVSP 40,cannot assess diastolic fx Laboratory Tests Test 03/02/18 12:40 C-Reactive Protein, Quantitative 7.1 mg/dL (0.00-0.90) H Objective HEENT: Atraumatic and normocephalic. Anicteric. Pupils are equal, round, and reactive to light and accommodation. Extraocular muscles intact. NECK: JVP less than 5 cm. No carotid bruit. Carotid upstrokes 2+ bilaterally. CARDIOVASCULAR: Normal S1 and S2. Regular rate and rhythm. No murmurs, gallops, or rubs. LUNGS: Clear to auscultation bilaterally. ABDOMEN: Soft, nontender, and nondistended. No hepatosplenomegaly. Positive bowel sounds. EXTREMITIES: No evidence of edema, clubbing, or cyanosis. Vickey Jorge MD Mar 02, 2018 20:08
[2018-03-02] MEDS: Atorvastatin 20mg tab ORAL SCH (20:37)
[2018-03-02] MEDS: Dyna-Hex 2% Top Sol 2oz TOPIC SCH (20:37)
--- NOTE | 2018-03-02 20:47 | General Progress Note ---
Assessment/Plan Problem List: (1) ESRD on dialysis ICD Codes: N18.6 - End stage renal disease; Z99.2 - Dependence on renal dialysis SNOMED: 994890139, [id number], [id number] (2) ESRD (end stage renal disease) on dialysis ICD Codes: N18.6 - End stage renal disease; Z99.2 - Dependence on renal dialysis SNOMED: 104453937 (3) Fluid overload ESRD Status: progressing Assessment/Plan missed diaylsis awaiting [facility] DIAYLSYS SET UP w hep panel esrd on hd htn vitals stable Subjective ROS Limited/Unobtainable: Yes Allergies: Coded Allergies: ASPIRIN (Verified Allergy, Unknown, 02/22/18) Objective Last 24 Hour Vital Signs Date Time Temp Pulse Resp B/P (MAP) Pulse Ox O2 Delivery O2 Flow Rate FiO2 03/02/18 20:37 72 132/61 03/02/18 20:00 98.6 72 18 132/61 (84) 97 03/02/18 16:00 98.6 84 17 112/54 (73) 94 03/02/18 12:00 98.8 76 19 139/88 (105) 96 03/02/18 09:00 Room Air 03/02/18 08:00 98.8 72 18 141/58 (85) 95 03/02/18 04:00 98.1 77 20 141/75 (97) 93 03/02/18 00:00 97.3 71 20 125/61 (82) 93 03/01/18 21:00 Room Air 03/01/18 20:52 76 140/67 Intake and Output 03/01/18 03/02/18 18:59 06:59 Intake Total 120 ml Output Total 2000 ml Balance -2000 ml 120 ml Intake Oral 120 ml Hemodialysis UF 2000 ml Laboratory Tests 03/02/18 12:40: C-Reactive Protein, Quantitative 7.1H Height (Feet): 5 Height (Inches): 8.00 Weight (Pounds): 216 Neck: supple Cardiovascular: normal rate Respiratory/Chest: lungs clear Abdomen: soft Kelvin Buckley MD Mar 02, 2018 20:47
--- NOTE | 2018-03-02 23:19 | Cardiology Progress Note ---
Assessment/Plan Assessment/Plan 1. Slight elevation of troponin I level could be secondary to type 2 non-ST elevation myocardial infarction versus troponin leak due to end-stage renal disease, continue conservative management, 2D echocardiography which has shown global left ventricular hypokinesia with LVEF of approximately 40%, continue on aspirin, statins and beta-blockers. 2. History of diabetes mellitus, continue aspirin and statins. 3. Cardiomyopathy with LV systolic dysfunction with LVEF about 40%. Etiology of which is unknown; however one needs to rule out coronary artery disease. Will consider right and left heart catheterization. 4. History of end-stage renal disease on hemodialysis. 5. History of dyslipidemia with low HDL levels, on atorvastatin. Subjective Subjective Not on the telemetry monitoring. No cardiac events. Objective Last 24 Hour Vital Signs Date Time Temp Pulse Resp B/P (MAP) Pulse Ox O2 Delivery O2 Flow Rate FiO2 03/02/18 21:00 Room Air 03/02/18 20:37 72 132/61 03/02/18 20:00 98.6 72 18 132/61 (84) 97 03/02/18 16:00 98.6 84 17 112/54 (73) 94 03/02/18 12:00 98.8 76 19 139/88 (105) 96 03/02/18 09:00 Room Air 03/02/18 08:00 98.8 72 18 141/58 (85) 95 03/02/18 04:00 98.1 77 20 141/75 (97) 93 03/02/18 00:00 97.3 71 20 125/61 (82) 93 Intake and Output 03/01/18 03/02/18 18:59 06:59 Intake Total 120 ml Output Total 2000 ml Balance -2000 ml 120 ml Intake Oral 120 ml Hemodialysis UF 2000 ml Laboratory Tests Test 03/02/18 12:40 C-Reactive Protein, Quantitative 7.1 mg/dL (0.00-0.90) H Objective HEENT: Atraumatic and normocephalic. Anicteric. Pupils are equal, round, and reactive to light and accommodation. Extraocular muscles intact. NECK: JVP less than 5 cm. No carotid bruit. Carotid upstrokes 2+ bilaterally. CARDIOVASCULAR: Normal S1 and S2. Regular rate and rhythm. No murmurs, gallops, or rubs. LUNGS: Clear to auscultation bilaterally. ABDOMEN: Soft, nontender, and nondistended. No hepatosplenomegaly. Positive bowel sounds. EXTREMITIES: No evidence of edema, clubbing, or cyanosis. Vickey Jorge MD Mar 02, 2018 23:19
[2018-03-03] VITALS: BP 135/65
[2018-03-03 04:00] VITALS: BP 123/63
[2018-03-03 05:50] LABS: BASOPHILS % (AUTO) 2.3 % (0.0-2.0); EOSINOPHILS % (AUTO) 3.4 % (0.0-3.0); HEMATOCRIT 27.4 % (42.0-52.0); HEMOGLOBIN 8.8 G/DL (14.2-18.0); LYMPHOCYTES % (AUTO) 13.9 % (20.0-45.0); MEAN CORPUSCULAR VOLUME 106 FL (80-99); MONOCYTES % (AUTO) 12.4 % (1.0-10.0); PLATELET COUNT 146 K/UL (150-450); RED CELL DISTRIBUTION WIDTH 13.5 % (11.6-14.8); WHITE BLOOD COUNT 6.5 K/UL (4.8-10.8)
[2018-03-03 06:24] LABS: ALANINE AMINOTRANSFERASE 14 U/L (12-78); ALBUMIN 2.6 G/DL (3.4-5.0); ALBUMIN/GLOBULIN RATIO 0.6 (1.0-2.7); ALKALINE PHOSPHATASE 94 U/L (46-116); ANION GAP 6 mmol/L (5-15); ASPARTATE AMINO TRANSFERASE 17 U/L (15-37); BILIRUBIN,TOTAL 0.8 MG/DL (0.2-1.0); BLOOD UREA NITROGEN 27 mg/dL (7-18); CALCIUM 8.4 MG/DL (8.5-10.1); CARBON DIOXIDE 35 MMOL/L (21-32); CHLORIDE 96 MMOL/L (98-107); CREATININE 6.8 MG/DL (0.55-1.30); PHOSPHORUS 3.7 MG/DL (2.5-4.9); POTASSIUM 3.9 MMOL/L (3.5-5.1); SODIUM 137 MMOL/L (136-145)
[2018-03-03] MEDS: NovoLOG Insulin Flexpen SUBQ SCH (06:30)
--- NOTE | 2018-03-03 07:32 | NUR ---
HAND-OFF: Report given to Monica PRESSLEY
[2018-03-03 08:00] VITALS: BP_SYST 126; BP_SYST 127; BP_DIAS 64; BP_DIAS 86
[2018-03-03] MEDS: Imdur 30mg tab ORAL SCH (09:00)
[2018-03-03] MEDS: Lisinopril 10mg tab ORAL SCH (09:00)
[2018-03-03] MEDS: Metoprolol 25mg tab ORAL SCH (09:00)
[2018-03-03] MEDS: Heparin 5000 units/ml inj SUBQ SCH (09:00)
[2018-03-03] MEDS: Docusate 100mg cap ORAL SCH ×2 (09:18→13:28)
--- NOTE | 2018-03-03 09:28 | NUR ---
NURSE NOTES: Patient is alert and oriented,sitting up in bed and eating breakfast,respirations unlabored.Shunt to the right arm with strong bruit and thrill.Patient schedule for Dialysis today.
--- NOTE | 2018-03-03 09:57 | NUR ---
*-* DISCHARGE PLANNING *-* PATIENT HAS BEEN REFERRED BACK TO: [facility] P:[phone] F:[phone]
--- NOTE | 2018-03-03 10:59 | NUR ---
*-* DISCHARGE PLANNED *-* PATIENT IS DISCHARGED TO: [facility]# [id number] SKILLED T:[phone] FOR NURSE TO NURSE REPORT [facility] HAS BEEN ARRANGED FOR SR COMMUNITY MANAGER AT 1230 AFTER DIALYSIS.
--- NOTE | 2018-03-03 11:11 | Nephrology Progress Note ---
Assessment/Plan Problem List: (1) ESRD (end stage renal disease) on dialysis (2) Elevated troponin (3) Anemia in CKD (chronic kidney disease) (4) Cardiomyopathy Assessment ESRD graft right arm Obese CP elevated Troponin Anemia of CKD Plan EPO SQ HD 03/03 beta blockers Nitrate plavix gastric support renal diet per orders 2D echo 40% ej Fx one dose dig add zestril awaiting placement Subjective ROS Limited/Unobtainable: No Objective Objective Last 24 Hour Vital Signs Date Time Temp Pulse Resp B/P (MAP) Pulse Ox O2 Delivery O2 Flow Rate FiO2 03/03/18 09:00 126/64 03/03/18 09:00 71 126/64 03/03/18 09:00 126/64 03/03/18 08:00 98.7 71 17 126/64 (84) 96 03/03/18 04:00 98.2 71 18 123/63 (83) 97 03/03/18 00:00 98.1 75 18 135/65 (88) 98 03/02/18 21:00 Room Air 03/02/18 20:37 72 132/61 03/02/18 20:00 98.6 72 18 132/61 (84) 97 03/02/18 16:00 98.6 84 17 112/54 (73) 94 03/02/18 12:00 98.8 76 19 139/88 (105) 96 Intake and Output 03/02/18 03/03/18 19:00 07:00 Intake Total 500 ml 100 ml Balance 500 ml 100 ml Intake Oral 100 ml Other 500 ml Laboratory Tests 03/02/18 12:40: C-Reactive Protein, Quantitative 7.1H 03/03/18 05:15: White Blood Count 6.5, Red Blood Count 2.60L, Hemoglobin 8.8L, Hematocrit 27.4L , Mean Corpuscular Volume 106H, Mean Corpuscular Hemoglobin 34.0H, Mean Corpuscular Hemoglobin Concent 32.2, Red Cell Distribution Width 13.5, Platelet Count 146L, Mean Platelet Volume 6.8, Neutrophils (%) (Auto) 68.0, Lymphocytes ( %) (Auto) 13.9L, Monocytes (%) (Auto) 12.4H, Eosinophils (%) (Auto) 3.4H, Basophils (%) (Auto) 2.3H, Sodium Level 137, Potassium Level 3.9, Chloride Level 96L, Carbon Dioxide Level 35H, Anion Gap 6, Blood Urea Nitrogen 27H, Creatinine 6.8H, Estimat Glomerular Filtration Rate , Glucose Level 100, Calcium Level 8.4L, Phosphorus Level 3.7, Magnesium Level 2.0, Total Bilirubin 0.8, Aspartate Amino Transf (AST/SGOT) 17, Alanine Aminotransferase (ALT/SGPT) 14, Alkaline Phosphatase 94, Pro-B-Type Natriuretic Peptide 8853H, Total Protein 6.8, Albumin 2.6L, Globulin 4.2, Albumin/Globulin Ratio 0.6L Height (Feet): 5 Height (Inches): 8.00 Weight (Pounds): 216 General Appearance: no apparent distress Cardiovascular: normal rate Respiratory/Chest: decreased breath sounds Abdomen: soft Objective no change Prasanna Arrington MD Mar 03, 2018 11:11
[2018-03-03 12:00] VITALS: BP 145/62
--- NOTE | 2018-03-03 14:19 | NUR ---
NURSE NOTES: Report given to Medic RN at [facility].
--- NOTE | 2018-03-03 15:00 | NUR ---
NURSE NOTES: Patient discharge to [facility],Patient has personal belongings.Triple Lumen to the right groin removed,pressure applied to right groin and dressing applied.Informed [facility] personnel to keep leg straight.No bleeding noted,dressing is dry. Discharge Packet given to [facility] Personnel.
--- NOTE | 2018-03-03 22:56 | Cardiology Progress Note ---
Assessment/Plan Assessment/Plan 1. Slight elevation of troponin I level could be secondary to type 2 non-ST elevation myocardial infarction versus troponin leak due to end-stage renal disease, continue conservative management, 2D echocardiography which has shown global left ventricular hypokinesia with LVEF of approximately 40%, continue on aspirin, statins and beta-blockers. 2. History of diabetes mellitus, continue aspirin and statins. 3. Cardiomyopathy with LV systolic dysfunction with LVEF about 40%. Etiology of which is unknown; however one needs to rule out coronary artery disease. The patient refused cardiac catheterization. 4. History of end-stage renal disease on hemodialysis. 5. History of dyslipidemia with low HDL levels, on atorvastatin. Subjective Subjective Not on the telemetry monitoring. No cardiac events. Objective Last 24 Hour Vital Signs Date Time Temp Pulse Resp B/P (MAP) Pulse Ox O2 Delivery O2 Flow Rate FiO2 03/03/18 12:00 98.0 89 18 145/62 (89) 98 03/03/18 09:00 126/64 03/03/18 09:00 71 126/64 03/03/18 09:00 126/64 03/03/18 09:00 Room Air 03/03/18 08:00 98.0 71 19 127/86 (100) 97 03/03/18 04:00 98.2 71 18 123/63 (83) 97 03/03/18 00:00 98.1 75 18 135/65 (88) 98 Intake and Output 03/02/18 03/03/18 18:59 06:59 Intake Total 500 ml 100 ml Balance 500 ml 100 ml Intake Oral 100 ml Other 500 ml 2D Echo: EF40%,Mild LVH,Mild LAE, Large PL. eff, RVSP 40,cannot assess diastolic fx Laboratory Tests Test 03/03/18 05:15 White Blood Count 6.5 K/UL (4.8-10.8) Red Blood Count 2.60 M/UL (4.70-6.10) L Hemoglobin 8.8 G/DL (14.2-18.0) L Hematocrit 27.4 % (42.0-52.0) L Mean Corpuscular Volume 106 FL (80-99) H Mean Corpuscular Hemoglobin 34.0 PG (27.0-31.0) H Mean Corpuscular Hemoglobin Concent 32.2 G/DL (32.0-36.0) Red Cell Distribution Width 13.5 % (11.6-14.8) Platelet Count 146 K/UL (150-450) L Mean Platelet Volume 6.8 FL (6.5-10.1) Neutrophils (%) (Auto) 68.0 % (45.0-75.0) Lymphocytes (%) (Auto) 13.9 % (20.0-45.0) L Monocytes (%) (Auto) 12.4 % (1.0-10.0) H Eosinophils (%) (Auto) 3.4 % (0.0-3.0) H Basophils (%) (Auto) 2.3 % (0.0-2.0) H Sodium Level 137 MMOL/L (136-145) Potassium Level 3.9 MMOL/L (3.5-5.1) Chloride Level 96 MMOL/L (98-107) L Carbon Dioxide Level 35 MMOL/L (21-32) H Anion Gap 6 mmol/L (5-15) Blood Urea Nitrogen 27 mg/dL (7-18) H Creatinine 6.8 MG/DL (0.55-1.30) H Estimat Glomerular Filtration Rate mL/min (>60) Glucose Level 100 MG/DL (74-106) Calcium Level 8.4 MG/DL (8.5-10.1) L Phosphorus Level 3.7 MG/DL (2.5-4.9) Magnesium Level 2.0 MG/DL (1.8-2.4) Total Bilirubin 0.8 MG/DL (0.2-1.0) Aspartate Amino Transf (AST/SGOT) 17 U/L (15-37) Alanine Aminotransferase (ALT/SGPT) 14 U/L (12-78) Alkaline Phosphatase 94 U/L (46-116) Pro-B-Type Natriuretic Peptide 8853 pg/mL (0-125) H Total Protein 6.8 G/DL (6.4-8.2) Albumin 2.6 G/DL (3.4-5.0) L Globulin 4.2 g/dL Albumin/Globulin Ratio 0.6 (1.0-2.7) L Objective HEENT: Atraumatic and normocephalic. Anicteric. Pupils are equal, round, and reactive to light and accommodation. Extraocular muscles intact. NECK: JVP less than 5 cm. No carotid bruit. Carotid upstrokes 2+ bilaterally. CARDIOVASCULAR: Normal S1 and S2. Regular rate and rhythm. No murmurs, gallops, or rubs. LUNGS: Clear to auscultation bilaterally. ABDOMEN: Soft, nontender, and nondistended. No hepatosplenomegaly. Positive bowel sounds. EXTREMITIES: No evidence of edema, clubbing, or cyanosis. Vickey Jorge MD Mar 03, 2018 22:55
--- NOTE | 2018-03-05 08:07 | Discharge Summary ---
Discharge Summary Discharge Summary _ DATE OF ADMISSION: 02/22/2018 DATE OF DISCHARGE: 03/03/2018 DISCHARGED BY: REASON FOR ADMISSION: 77 years old male with past medical history of end-stage renal disease on hemodialysis, hypertension, diabetes mellitus, anemia, presented to emergency department with complaint of generalized weakness and pain. Patient missed hemodialysis on that day. He denied chest pain or shortness of breath . He denied fever and chills. He denied cough. Upon evaluation vital signs were stable. Laboratory workup revealed no leukocytosis, hemoglobin 9.4 hematocrit 28.3, MCV 105. Sodium 133. BUN 24, creatinine 8.6, consistent with known history of end-stage renal disease. Glucose 99. Troponin - 0.068. Pro BNP 15301. EKG revealed atrial rhythm with some PVC. Chest x-ray revealed cardiomegaly and vascular congestion. Left larger than right pleural effusion with associated atelectasis and possible consolidation. Patient was admitted for further management. CONSULTANTS: office administrative assistant Dr. Luisito BUCHANAN specialist Dr. Christianson water engineer Dr. Arrington hoistman/oncologist Dr. Cárdenas [facility] H[facility]PITAL COURSE: Patient initially admitted to monitored floor. Cardiology consult was requested. ECG revealed no acute ischemic changes. Serial troponin were monitored and revealed mild elevation. Echocardiogram revealed reduced ejection fraction of 40% with global ventricular ventricular hypokinesis. Mild left ventricular hypertrophy and large pleural effusion noted. Right ventricular systolic pressure of 40 consistent with mild pulmonary hypertension . Lipid panel revealed low HDL. TSH within normal limits. Per office administrative assistant slight elevation in troponin was possibly secondary to type II non-STEMI versus troponin leak due to end-stage renal disease. [place] Inspector recommended to continue conservative management : antiplatelet therapy with Plavix, statin , beta-regan, maintenance dose of diuretics. SILVANA inhibitor was added. Blood pressure was controlled Imdur continued. Volumes and cardiorenal parameters were closely monitored. Patient had a cardiomyopathy with reduced ejection fraction of 40%. Etiology was unknown , and office administrative assistant recommended cardiac catheterization . However patient declined the procedure at this time. Recommended to consider cardiac catheterization as outpatient and meantime continue with medical therapy. DVT prophylaxis provided. Patient was continued with hemodialysis as per water engineer with close monitoring of volumes, renal parameters and electrolytes. Electrolytes corrected as needed. Hemoglobin and hematocrit were closely monitored with goal to keep hemoglobin above 7. Anemia workup was consistent with anemia of chronic disease. Patient was on and Epogen 3 times a week. Hemoglobin and hematocrit remained on the baseline; prior to discharge hemoglobin 8.8 hematocrit 27.4. ID specialist closely followed. Patient on initial presentation had pleural effusion and atelectasis, associated with volume overload. However no evidence of infection, no fever ,no leukocytosis. Infectious disease doctor recommended to observe patient off antibiotics. Supplemental oxygen was on board as needed to keep oximetry above 92% ; pulse oximetry was stable on room air. Blood sugar was managed with sliding scale of insulin. Plan to begin GI prophylaxis provided Supportive care provided. Pain management addressed as needed. Bowel regimen instituted. Patient stabilized and was ready for transfer to [facility] facility for continuation of care. FINAL DIAGNOSES: Abnormal cardiac enzymes likely secondary to type II non-STEMI Possible troponin leak due to end-stage renal disease Cardiomyopathy with left ventricular systolic dysfunction ( ejection fraction 40 %) End-stage renal disease , on hemodialysis History of dyslipidemia with low HDL Diabetes mellitus Hypertension Anemia of chronic kidney disease Pleural effusion with atelectasis Volume overload DISCHARGE MEDICATIONS: See Medication Reconciliation list. DISCHARGE INSTRUCTIONS: Patient was discharged to the [facility] facility. Follow up with medical doctor at the facility. I have been assigned to dictate discharge summary for this account. I was not involved in the patient's management. Madeline Rivera NP Mar 05, 2018 08:06
== END 2018-03-03 15:20 | DRG 640 ==
LOC: EDBD 17:39 → EMR 18:48 → 4E 18:54 → EDBEDREQ 20:37 → 4E 03-02 16:46
PROC: 5A1D70Z Performance of Urinary Filtration, Intermittent, Less than 6 Hours Per Day (ICD-10-PCS; principal; 2018-02-24)
DX: E87.79 Other fluid overload (principal); N18.6 End stage renal disease; I21.A1 Myocardial infarction type 2; J90 Pleural effusion, not elsewhere classified; J98.11 Atelectasis; I42.9 Cardiomyopathy, unspecified; I12.0 Hypertensive chronic kidney disease with stage 5 chronic kidney disease or end stage renal disease; E11.22 Type 2 diabetes mellitus with diabetic chronic kidney disease; Z99.2 Dependence on renal dialysis; D63.1 Anemia in chronic kidney disease; E78.5 Hyperlipidemia, unspecified; Z91.15 Patient's noncompliance with renal dialysis; Z87.891 Personal history of nicotine dependence; M19.90 Unspecified osteoarthritis, unspecified site; I27.20 Pulmonary hypertension, unspecified; Z88.6 Allergy status to analgesic agent
CPT/HCPCS: 36415; 36600; 71045; 80053; 80061; 82533; 82550; 82553; 82607; 82728; 82746; 82803; 82962; 82977; 83036; 83540; 83550; 83605; 83735; 83880; 84100; 84443; 84484; 84550; 85025; 85610; 86140; 86706; 86707; 86803; 87040; 87081; 93005; 93306; 96365; 99285; J1815